=== PATIENT | male | born 1980 | race Caucasian/White ===

== ENCOUNTER 2021-06-08 16:48 | Emergency (ER) | payer MEDICAID, SELFPAY ==
[2021-06-08 17:02] VITALS: BP 124/76; PULSE 67; RESP 16; TEMP 36.8; O2SAT 99
--- NOTE | 2021-06-08 17:30 | DI.CT_ITS ---
Exam(s) CT ABDOMEN PELVIS W EXAM: CT ABDOMEN PELVIS W CLINICAL HISTORY: scrotal erythema and pain post hernia repair bilat TECHNIQUE: Imaging Protocol: Axial computed tomography images with coronal and sagittal reformatted images were created and reviewed CONTRAST MATERIAL: Intravenous: Omnipaque 350 Contrast volume:100 mL Oral: No COMPARISON: No exams were available for comparison FINDINGS: ABDOMEN: Lung Bases: Mild dependent atelectasis. Liver: Normal density. No measurable mass. Portal, Superior Mesenteric, and Splenic Veins: Unremarkable. Gallbladder and Biliary Tract: No radiodense calculus or dilation. Pancreas: Normal density, no abnormal calcifications or inflammatory process. Spleen: Normal. Adrenals: No masses seen. Kidneys: Normal size, contour and axis. No radiodense stones or obstructive uropathy. No masses seen. Abdominal Aorta: Abdominal portion non-dilated. Bowel: There are mildly dilated loops of small bowel noted particularly proximally. In the postsurgi lesa setting an ileus should be considered. Partial obstruction cannot be entirely excluded. No evid ence of appendicitis. Peritoneal Cavity: There is a peripherally enhancing fluid collection anterior to the urinary bladder (series 5, images [id number]). This may represent an abscess. No free air.There is a tiny amount of f ree fluid in the pelvis. Lymph Nodes: Within normal limits. Bones: Within normal limits for the patient's age. Soft Tissues: There is asymmetric soft tissue thickening in both inguinal canals, right greater than left. This may be postsurgical secondary to the patient's recent bilateral inguinal hernia repair. PELVIS: Bladder: Symmetric distention, no gross wall thickening. Reproductive Organs: Unremarkable as visualized. Lymph Nodes: Within normal limits. Bones: Within normal limits for the patient's age. IMPRESSION: 1. Fluid and gas filled dilated small bowel loops. In the postoperative state, and ileus should be c onsidered. Partial small bowel obstruction cannot be excluded. 2. Soft tissue swelling in the inguinal canals bilaterally. This may be postsurgical edema. Infecti on cannot be entirely excluded. 3. 1 x 4.5 x 4.1 cm peripherally enhancing fluid collection anterior to the urinary bladder which may represent a small abscess. RADIATION DOSE DELIVERED: 617.46mGy.cm Total DLP DATA REPOSITORY: All CT scans at this facility are submitted to the National Radiology Data Registry (NRDR) Dose Index Registry (DIR) with the [employer] (ACR). RADIATION OPTIMIZATION: All CT scans at this facility use at least one of these dose optimization te chniques: automated exposure control; mA and/or kV adjustment per patient size (includes targeted exa ms where dose is matched to clinical indication); or iterative reconstruction.
[2021-06-08 18:07] LABS: Abs Immature Grans 0.03 10^3/uL (0.0-0.06); Absolute Basophil Count 0.05 10^3/uL (0.0-0.2); Absolute Eosinophil Count 0.38 10^3/uL (0.0-0.7); Absolute Lymphocyte Count 2.05 10^3/uL (1.2-3.4); Absolute Monocyte Count 1.13 10^3/uL (0.1-0.8); Absolute Neutrophil Count 6.11 10^3/uL (1.2-6.7); Basophils % 0.5; Eosinophils % 3.9; HCT 41.6 % (40.0-50.0); HGB 14.3 g/dL (13.5-17.5); Immature Grans % 0.3; MCH 30.7 pg (27.0-33.0); MCHC 34.4 % (32.0-36.0); MCV 89.3 fL (80-95); MPV 9.4 fL (8.0-11.0); Monocytes % 11.6; Neutrophils % 62.7; Nucleated RBC 0 %; Platelet Count 305 10^3/uL (130-400); RBC 4.66 10^6/uL (4.36-5.78); RDW 12.5 % (11.8-14.1); RDW-SD 41.3 fL; WBC 9.75 10^3/uL (4.4-10.8)
[2021-06-08] MEDS: ACETAMINOPHEN 1,000 MG/100 ML BTL 400 MG IVPB (18:10)
[2021-06-08 18:21] LABS: ALT 17 U/L (16-63); AST 12 U/L (15-37); Albumin 3.5 g/dL (3.4-5.0); Alkaline Phosphatase 55 U/L (46-116); Anion Gap 4.7 mmol/L (3-11); BUN 18 mg/dL (7-18); Bilirubin, Total 0.2 mg/dL (0.2-1.0); C-Reactive Protein 1.79 mg/dL (0.0-0.3); CO2 32.3 mmol/L (21.0-32.0); CREATININE 1.1 mg/dL (0.70-1.30); Calcium 8.9 mg/dL (8.5-10.1); Chloride 103 mmol/L (98-107); Glucose 90 mg/dL (74-106); Sodium 140 mmol/L (136-145); Total Protein 7.5 g/dL (6.4-8.2)
[2021-06-08] MEDS: Omnipaque 350 MG/ML 100 ML BTL IJ (19:11)
[2021-06-08] MEDS: Normal Saline Flush 10 ML SYR IVP (19:13)
[2021-06-08] MEDS: Cephalexin 500 MG CAP, 4 CAPS/BTL PO (19:27)
[2021-06-08 19:30] VITALS: BP 110/59; PULSE 65; RESP 16; TEMP 37.1; O2SAT 100
--- NOTE | 2021-06-08 20:32 | DI.VRAD_ITS ---
PROCEDURE INFORMATION: Exam: CT Abdomen And Pelvis With Contrast Exam date and time: 06/08/2021 5:41 PM Age: 40 years old Clinical indication: Patient HX: Scrotal erythema and pain post hernia repair bilateral, hernia repair x1 week ago TECHNIQUE: Imaging protocol: Computed tomography of the abdomen and pelvis with contrast. Radiation optimization: All CT scans at this facility use at least one of these dose optimization techniques: automated exposure control; mA and/or kV adjustment per patient size (includes targeted exams where dose is matched to clinical indication); or iterative reconstruction. Contrast material: OMNIPAQUE 350; Contrast volume: 100 ml; Contrast route: INTRAVENOUS (IV); COMPARISON: No relevant prior studies available. FINDINGS: Limitations: Paucity of intra-abdominal fat. Lungs: Mild dependent atelectasis. Liver: Normal appearing liver. Gallbladder and bile ducts: Gallbladder collapsed and not well evaluated but grossly unremarkable, as seen. No calcified gallstones seen. No biliary dilatation. Pancreas: Pancreas partially obscured by close apposition of adjacent structures but grossly unremarkable, as seen. Spleen: Normal appearing spleen. Adrenal glands: Normal appearing adrenal glands. Kidneys and ureters: Normal appearing kidneys. No hydronephrosis. Stomach and bowel: No oral contrast. Moderate fluid and gas-filled dilatation of a moderately long segment of small bowel extending into the region of the left inguinal hernia with relative collapse of the downstream small bowel. Postoperative ileus? Small bowel obstruction? Fluid throughout the downstream small bowel, relatively decreased in caliber but not frankly collapsed. Colon partially obscured by close apposition of adjacent structures but grossly unremarkable, as seen. No evidence of diverticulitis or colitis. Appendix: Normal appendix, best demonstrated by the coronal series. Intraperitoneal space: Small amount of free fluid in the deep pelvis. No free air. Vasculature: Normal caliber abdominal aorta. Lymph nodes: No pathologically enlarged mesenteric, retroperitoneal, or pelvic sidewall lymph nodes. Urinary bladder: Normal appearing urinary bladder. Reproductive: Prostate gland and seminal vesicles partially obscured but grossly normal in size. Bones/joints: No acute fracture seen among the bones of the abdomen or pelvis. Soft tissues: Asymmetric soft tissue swelling and fluid in the region of a recent left inguinal hernia repair, images 64-78 of series 4. Peripherally enhancing fluid collection within the space of Retzius anterior to the bladder measuring 1.0 cm x 4.5 cm x 4.1 cm suspicious for a small abscess, best demonstrated by axial images 72-80 of series 4. Asymmetric heterogeneous soft tissue density extending along the right inguinal cord into the upper scrotum with an appearance suspicious for prominent vascular structure surrounded by edema. Scrotal contents excluded from view. If there is concern for intrascrotal pathology or vascular compromise of the testicles, ultrasound would be recommended for additional evaluation. IMPRESSION: 1. Moderate fluid and gas-filled dilatation of a moderately long segment of small bowel extending into the region of the left inguinal hernia with relative collapse of the downstream small bowel. In the recent postop period, a postoperative ileus could have this appearance; however, partial or developing small bowel obstruction could have an identical appearance. Clinical correlation is recommended. 2. Asymmetric soft tissue swelling and fluid in the region of a recent left inguinal hernia repair. The appearance is nonspecific. Postsurgical edema and fluid could have this appearance although superimposed infection is not excluded. 3. Peripherally enhancing 1.0 cm x 4.5 cm x 4.1 extraperitoneal fluid collection within the space of Retzius anterior to the bladder measuring cm. Marginal enhancement suggests that this finding probably represents a small abscess. 4. Asymmetric heterogeneous soft tissue density extending along the right inguinal cord into the upper scrotum with an appearance suspicious for prominent vascular structure surrounded by edema. Postsurgical edema could probably have this appearance. Superimposed infection is not excluded by imaging. Of note, the scrotal contents are not imaged. If there is clinical concern for intrascrotal pathology or vascular compromise of the testicles, ultrasound would be recommended for additional evaluation. 5. Small amount of fluid in the deep pelvis. Dictated and Authenticated by: Rodríguez Lomeli MD. Ordering:SHONA Kapoor MD
--- NOTE | 2021-06-08 23:09 | W.ED.GENAD ---
Discharge Plan Disposition Patient Disposition: AGAINST MEDICAL ADVICE Condition: Serious Discharge Details Clinical Impression: Scrotal erythema Primary Care Provider: Unknown,Unknown ED Provider: Emelia Steele Home Meds and New Rx's Prescriptions: New cephalexin 500 mg capsule 500 mg PO Q6H 10 Days Qty: 40 RF: 0 Discharge Instructions Additional Instructions: You are leaving against our medical recommendation prior to your CAT scan returning in consultation with urology, I will call you with the results of your ultrasound, if you do not hear from me you may call emergency at the number listed It is recommendation that you are reevaluated at your earliest ability, you should also call your urologist and essential that you follow-up with them, you are at risk for serious infection to your scrotal region I have supplied you with antibiotics for some concern for infection to your postoperative site Medical Decision Making Patient had CT scan and diagnostic labs, CRP elevated consistent with suspected infection CT scan pending and patient request discharge He states that his ride is leaving and he must be discharged home I did discuss the risk associated with his decision and he has accepted these risk, he is completely alert, oriented, of decisional capacity He understands that he is at risk for fourniers gangrene or more significant pathology He is discharged home with prescription for Keflex for suspected abscess to laparoscopic sites, he is aware that we have not received the results of the CT scan although concern for air-fluid levels on his CT scan V rad interpretation shows abscess in the suprapubic region possibly with soft tissue edema to right scrotum consistent with patient's pain Likely cellulitic Ileus versus bowel obstruction, patient made aware regarding the results, I spoke with his surgeon, Dr. Gallo at [facility] with the patient to go to the emergency room if he is able to, and he will history admit He states that he also feels comfortable calling the patient first thing in the morning and will admit him at that time if he is more comfortable I discussed these options with the patient and patient states that he will go down to [facility], he states that he prefers not to see Dr. Gallo again because he has a infection after surgery Patient asked that we transfer his records to [facility], I did let him know that they likely will have access to her records I also made patient aware that we did not refer him to [facility] nor have any consultation with [facility] and this will be a new visit for the patient Medical Records Medical records reviewed: Yes I reviewed the patient's medical records. Lab Data Lab results reviewed: Yes I reviewed the patient's lab results. HPI General Mode of arrival: ambulatory. Date/Time Provider Initiated Documentation: 06/08/21 17:31. Limitations to Documentation: no limitations. Information obtained by: patient. HPI Narrative: This 40-year-old gentleman presents status post bilateral inguinal hernia repair on 06-18 at [facility]. Patient states that he is having some increased pain in his abdomen. He states he is moving his bowels. He denies any fever or chills. He states he had the pain for the past 2 days and become progressively worse. He denies any chest pain or shortness of breath. He denies dizziness or weakness. He states the pain is exacerbated with walking. He states that he did not follow-up at his scheduled appointment with the surgeon as he was in too much pain and could not acquire a ride. He has been able to urinate without difficulty. Related Data Home Medications Medication Instructions Recorded Confirmed cephalexin 500 mg PO Q6H 10 Days #40 cap 06/08/21 Previous Rx's Medication Instructions Recorded cephalexin 500 mg PO Q6H 10 Days #40 cap 06/08/21 Allergies Allergy/AdvReac Type Severity Reaction Status Date / Time No Known Allergies Allergy Unverified 06/08/21 17:09 General Stated Complaint: Abd Prob NITIN: 3 Review of Systems All systems reviewed & are unremarkable except as noted in HPI and below PFSH Social History Smoking/Tobacco Use Status: Current every day Smoking risk assessment performed?: Yes Alcohol Intake: current Alcohol Intake frequency: a few times a month Drug use: Daily Substance use type: marijuana Do you feel safe at home: Yes Do you feel safe in your relationship?: Yes Exam Const General: cooperative HENMT Mouth: oral mucosae normal Eyes Other: No peripheral edema or calf tenderness Resp Effort & Inspection: normal respiratory effort Cardio Rate: regular rate Rhythm: regular rhythm GI Other: Abdomen tender, 3 laparoscopic sites noted, the umbilical laparoscopic site has induration and slight wound dehiscence, no purulent drainage noted Tenderness with palpation over suprapubic region, scrotal erythema and mild edema with slight induration, no tissue necrosis or crepitus, no rebound or guarding Other: No CVA tenderness, no penile involvement Skin Other: Erythema and swelling noted to right scrotum Neuro General: patient alert and patient oriented x3 Extrem General: normal to inspection Course Vital Signs Vital signs: Vital Signs Temperature 36.8 C 06/08/21 17:02 Pulse 67 06/08/21 17:02 Respiratory Rate 16 06/08/21 17:02 Blood Pressure 124/76 06/08/21 17:02 Pulse Oximetry 99 06/08/21 17:02 Temperature 37.1 C 06/08/21 19:30 Temperature Source Skin 06/08/21 17:02 Pulse 65 06/08/21 19:30 Respiratory Rate 16 06/08/21 19:30 Respiratory Effort 06/08/21 18:12 Blood Pressure 110/59 L 06/08/21 19:30 Blood Pressure Position Sitting 06/08/21 17:02 Pulse Oximetry 100 06/08/21 19:30 Oxygen Delivery Method Room Air 06/08/21 17:02 Oxygen Flow Rate 0 06/08/21 17:02 Pain Level 8 06/08/21 18:10 Comment 06/08/21 17:02 Lab/Test Results Lab/Test Results: Laboratory Tests Range/Units 06/08/21 06/08/21 17:55 17:55 WBC (4.4-10.8) 10^3/uL 9.75 RBC (4.36-5.78) 10^6/uL 4.66 Hgb (13.5-17.5) g/dL 14.3 Hct (40.0-50.0) % 41.6 MCV (80-95) fL 89.3 MCH (27.0-33.0) pg 30.7 MCHC (32.0-36.0) % 34.4 RDW (11.8-14.1) % 12.5 Plt Count (130-400) 10^3/uL 305 MPV (8.0-11.0) fL 9.4 Immature Gran % 0.3 Neutrophils % 62.7 Lymphocytes % 21.0 Monocytes % 11.6 Eosinophils % 3.9 Basophils % 0.5 Nucleated RBC % % 0 Absolute Neutrophils (1.2-6.7) 10^3/uL 6.11 Absolute Lymphocytes (1.2-3.4) 10^3/uL 2.05 Absolute Monocytes (0.1-0.8) 10^3/uL 1.13 H Absolute Eosinophils (0.0-0.7) 10^3/uL 0.38 Absolute Basophils (0.0-0.2) 10^3/uL 0.05 Sodium (136-145) mmol/L 140 Potassium (3.5-5.1) mmol/L 4.0 Chloride (98-107) mmol/L 103 Carbon Dioxide (21.0-32.0) mmol/L 32.3 H Anion Gap (3-11) mmol/L 4.7 BUN (7-18) mg/dL 18 Creatinine (0.70-1.30) mg/dL 1.1 Estimated GFR/1.73 m2 (mL/min/1.73m2) >= 60.00 Glucose (74-106) mg/dL 90 Calcium (8.5-10.1) mg/dL 8.9 Total Bilirubin (0.2-1.0) mg/dL 0.2 AST (15-37) U/L 12 L ALT (16-63) U/L 17 Alkaline Phosphatase (46-116) U/L 55 C-Reactive Protein (0.0-0.3) mg/dL 1.79 H Total Protein (6.4-8.2) g/dL 7.5 Albumin (3.4-5.0) g/dL 3.5
== END 2021-06-08 19:36 | disposition left against medical advice (07) ==
PROVIDERS: Emergency Provider Physician Assistant
DX: L53.8 Other specified erythematous conditions (principal); R79.82 Elevated C-reactive protein (CRP); L02.211 Cutaneous abscess of abdominal wall; Y83.8 Other surgical procedures as the cause of abnormal reaction of the patient, or of later complication, without mention of misadventure at the time of the procedure; R93.3 Abnormal findings on diagnostic imaging of other parts of digestive tract
CPT/HCPCS: 36415; 80053; 96374; 99285; 74177; 85025; 86140; 99284; J0131; J3490

== ENCOUNTER 2022-07-13 18:27 | Emergency (ER) | payer MEDICAID, SELFPAY ==
[2022-07-13 18:33] VITALS: BP 141/76; PULSE 86; RESP 16; TEMP 36.5; O2SAT 99
--- OUTSIDE RECORDS SUMMARY | 2022-07-13 18:39 | XMS_ITS | Clinical Summary ---
:1980 Author Organization [facility] [place] [address] Care Team Providers Name Role Phone Supa Bolton MD Primary Care Provider Allergies Active Allergy Reactions Severity Noted Date Comments Penicillins 06/09/2021 From childhood, unknown reaction Medications No known medications Active Problems Problem Noted Date Intra-abdominal abscess 06/09/2021 Social History Tobacco Use Types Packs/Day Years Used Date Never Assessed Sex Assigned at Date Recorded Not on file Last Filed Vital Signs Vital Sign Reading Time Taken Comments Blood Pressure 124/90 06/09/2021 7:20 PM EDT Pulse 67 06/09/2021 3:04 AM EDT Temperature 36.6 ??C (97.9 ??F) 06/09/2021 7:20 PM EDT Respiratory Rate 22 06/09/2021 7:20 PM EDT Oxygen Saturation 96% 06/09/2021 7:20 PM EDT Inhaled Oxygen Concentration - - Weight 68 kg (150 lb) 06/09/2021 3:04 AM EDT Height 180.3 cm (5' 11) 06/09/2021 3:04 AM EDT Body Mass Index 20.92 06/09/2021 3:04 AM EDT Plan of Treatment Health Maintenance Due Date Last Done Comments Covid-19 Vaccine (#1) 01/18/1982 HIV screen 1999 Hepatitis C Screening 1999 Lipid Screening 1999 Tdap adult 2000 Tetanus vaccine 2000 Influenza (Flu) vaccine (1 of 1 - Influenza standard 05/29/2022 series) Insurance Payer Benefit Plan / Subscriber ID Effective Dates Phone Addre ss Type Group [place] [id number] 2021-Prese [phone] [address] [facility] [address] [place], [place] [phone] Advance Directives Latest Code Status on File Code Status Date Activated Date Inactivated Comments Attempt Cardiopulmonary Resuscitation - 06/09/2021 11:13 AM 2020 2:15 AM Inpatient Code Status decision made by: Patient Care Teams Training And Development Coordinator Relationship Specialty Start Date End Date Supa Bolton MD PCP - General General Internal Medicine 06/09/21 [address] [place], [place] [id number]
--- OUTSIDE RECORDS SUMMARY | 2022-07-13 18:39 | XMS_ITS | Encounter Summary ---
:1980 Author Organization [facility] [place] [address] Care Team Providers Name Role Phone Unavailable Primary Care Provider Unavailable Encounter Details Date Type Department Care Team Description 06/08/2021 Ancillary Procedure [place] [id number] Social History Tobacco Use Types Packs/Day Years Used Date Never Assessed Sex Assigned at Date Recorded Not on file documented as of this encounter Plan of Treatment Not on filedocumented as of this encounter Procedures Procedure Name Priority Date/Time Associated Diagnosis Comme nts FILM LIBRARY STAT 06/08/2021 12:00 AM Results for this STORAGE ONLY CT EDT procedure ar e in ABDOMEN AND PELVIS the resul ts section. documented in this encounter Results Film Library- Storage Only CT Abdomen & Pelvis (06/08/2021 12:00 AM EDT) Specimen (Source) Anatomical Location Collection Method / Collectio n Time Received Time / Laterality Volume Narrative RAD - 06/09/2021 4:51 AM EDT This exam is auto-finalizing. It's purpo se is for storage only. Keaton Hutchison MD [facility] FILM LIBRARY ORDERABLES Performing Organization Address City/State/ZIP Code Phon e Number [place], [place] documented in this encounter Visit Diagnoses Not on filedocumented in this encounter
--- OUTSIDE RECORDS SUMMARY | 2022-07-13 18:39 | XMS_ITS | Encounter Summary ---
:1980 Author Organization [place] [address] Care Team Providers Name Role Phone Supa Bolton MD Primary Care Provider Reason for Visit Reason Comments Post-op Problem Abscess Auth/Cert Specialty Diagnoses / Procedures Referred By Contact Refer red To Contact Diagnoses Intra-abdominal abscess Procedures EMERGENCY IPI Referral ID Status Reason Start Date Expiration Date Visits Requ ested Visits Authorized [id number] 1 1 Encounter Details Date Type Department Care Team Description 06/09/2021 Hospital Encounter 4 Carson Keaton Noguera MD [facility] [place] [id number] Intra-abdominal [facility] Javier Perera [facility] [place] [address] abscess (Primary Dx) [facility] Evy Pope MD [facility] [place] [address] [place] [id number] Social History Tobacco Use Types Packs/Day Years Used Date Never Assessed Sex Assigned at Date Recorded Not on file documented as of this encounter Last Filed Vital Signs Vital Sign Reading [...] Mass Index 20.92 06/09/2021 3:04 AM EDT documented in this encounter Progress Notes Carina Delacruz RN - 06/10/2021 12:11 AM EDT Pt left AMA, education provided, notified of risks associated w/ leaving AMA in current condition, offered compromised resolutions to complaints. MD notified and discussed w/ pt @ bedside, AMA paperwork signed. INAT Jw Aguilera MD - 06/09/2021 11:52 PM EDT Surgery Progress Note - Brief Update Pt left AMA evening of 06/09/21. On discussion with the pt he was upset that his partner was not allowed to sleep in a chair at his bedside per hospital policy. Pt was made aware of this policy multipletimes throughout the day, and staff had offered to help them find a nearby hotel and transportation for his partner. Pt declined, stating that if she was not allowed to sleep in the room, he would leave AMA. Discussed with the pt risks of leaving against medical advice in his current medical condition, including worsening of his SBO and scrotal pain. Pt showed no evidence of limited capacity, fully understood the risks. Exhibited a pattern of refusing medical advice throughout the day such as eatingfood while NPO per nursing report, and removing his NGT himself. Pt would not wait for senior resident to speak with him at bedside because his partner had left the building already. He removed his ownPIV and left the unit, although he did stop to sign the AMA paperwork before departing. Jw Aguilera MD 06/10/2021 Janice Adkins MD - 06/09/2021 2:56 PM EDTSummary: Self removal of NGT Daytime Series of Events HPI: Edmond Sanches is a 40 y.o. male with a history of left open inguinal hernia repair complicated by recurrence and bilateral TEP repair on 05/30 presents to the ED for evaluation of persistent right abdominal wall pain extending to the right groin and scrotum. He is also complaining of abdominal distension, decreased PO intake and bloating. His CT is concerning for fluid collection likely abscess or seroma and a low grade SBO. Events: @ approx 1pm: MD paged concerning severe throat pain and abdominal pain. Patient had just received NGT placement with no urojet administration. KUB confirmed correct placement. NGT placed to suction afterwards. Minimal , approx 30 cc of white substance coming out. Chloraseptic spray ordered and 2 pumps sprayed in mouth. One time dose Oxycodone given through NGT for pain. NGT 70 cm osmany at tip of the nose. At the same time, patient complaining of severe groin pain. @ approx 1:30p: patient transferred from ED to 411. Continued to complain of discomfort. Patient visibly in discomfort. Paged [phone] @ approx 2:30p: received a second page. Patient continues to be in excruciating pain. Asked for MD to assess. Planning on pulling NGT back a little and doing repeat KUB. Upon arrival at room patient had pulled NGT. [id number] made aware. No further intervention. Janice Tapia MD Pager #[phone] Ashley Canas RN - 06/09/2021 1:31 PM EDT IA incomplete documented in this encounter H&P Notes Evy Pope MD - 06/09/2021 7:11 AM EDT [facility] Department of General Surgery Consult Note Consultation Requested by: Javier Perera DO Patient location: ADM1 History of Present Illness: Edmond Sanches is a 40 y.o. male with a history of heavy smoking (1ppd) left inguinal hernia repair [id number], right inguinal hernia and recurrence of L inguinal hernia who underwent TEP repair on 05/30/21 at [facility] presents today with persistent right abdominal wall pain that began on the day of surgery. He reports that this pain has been steady, persistent, radiating to the right groin and extending to the right scrotum. Otherwise, he continues to tolerate a diet, passes bowel movements,and denies nausea, vomiting, fever, chills, or changes in urination. He was seen at [facility] yesterday where he underwent a CT AP concerning for an abscess and he was prescribed keflex. He left AMA and is requesting a third opinion regarding his abdominal wall pain which is exacerbated by movement. He denies any fever, chills, change in bowel or bladder habits. Past Medical History: No past medical history on file. Past Surgical History No past surgical history on file. Medications No current facility-administered medications on file prior to encounter. No current outpatient medications on file prior to encounter. Allergies Allergies Allergen Reactions ??? Penicillins From childhood, unknown reaction Family History: No family history on file. Social History: Social History Socioeconomic History ??? Marital status: Single Spouse name: Not on file ??? Number of children: Not on file ??? Years of education: Not on file ??? Highest education level: Not on file Occupational History ??? Not on file Tobacco Use ??? Smoking status: Not on file Substance and Sexual Activity ??? Alcohol use: Not on file ??? Drug use: Not on file ??? Sexual activity: Not on file Other Topics Concern ??? Not on file Social History Narrative ??? Not on file Social Determinants of Health Financial Resource Strain: ??? Difficulty of Paying Living Expenses: Not on file Food Insecurity: ??? Worried About Running Out of Food in the Last Year: Not on file ??? Ran Out of Food in the Last Year: Not on file Transportation Needs: ??? Lack of Transportation (Medical): Not on file ??? Lack of Transportation (Non-Medical): Not on file Physical Activity: ??? Days of Exercise per Week: Not on file ??? Minutes of Exercise per Session: Not on file Review of Systems: As stated above, otherwise negative Physical Exam: Temp: [36.8 ??C (98.2 ??F)] Heart Rate: [67] Resp: [18] BP: (127)/(76) SpO2: [99 %] Heart Rate from SpO2: -- General: alert, no acute distress Head: Atraumatic, non cyanotic Cardiac: Regular rate per monitor Pulmonary: clear to auscultation bilaterally, no increased work of breathing on RA Abdominal: soft, healing midline surgical laparoscopic scar w/ dermabond, tenderness of the right rectus from the umbilicus to the suprapubic region, right scrotal swelling, tender to palpation, no drainage from sincision Neuro: grossly intact, follows commands, AAO x3. Extremities: Warm and well-perfused Labs: Recent Labs 06/09/21 034 WBC 11.9* HGB 13.4* HCT 38.8* PLATELET 285 Recent Labs 06/09/21 034 NA 139 K 3.9 CL 102 CO2 27 BUN 14 CREATININE 0.80 Recent Labs 06/09/21 034 AST 11 ALT 7 ALKPHOS 53 BILITOT 0.2 BILIDIR 0.1 Recent Labs 06/09/21 034 CALCIUM 9.0 No results for input(s): PT, INR, PTT in the last 168 hours. No results for input(s): CK, TROPONINT, PROBNP in the last 168 hours. No results for input(s): CRP, SEDRATE in the last 7068 hours. Imaging: CT Abdomen/Pelvis * Approximately 3.9 x 3.6 x 0.7 cm peripherally enhancing fluid collection in the space of Retzius. Approximately 3.7 x 3.3 x 0.6 cm air-fluid collection tracking posterior to the right rectus abdominis to the right inguinal canal. These 2 collections are likely continuous and are concerning for abscess(es). * Focal soft tissue density in the right inguinal canal likely represents postoperative changes. * At least low-grade small bowel obstruction with a transition point in the left lower quadrant (sagittal series 8 image 45). * Herniation of the antimesenteric border of a small bowel loop distal to the transition point into the left inguinal canal. Please note that the transition point is proximal to and distinct from the herniated loop. Impression: Edmond Sanches is a 40 y.o. male with a history of left open inguinal hernia repair complicated by recurrence and bilateral TEP repair on 05/30 presents to the ED for evaluation of persistent right abdominal wall pain extending to the right groin and scrotum. He is also complaining of abdominal distension, decreased PO intake and bloating. His CT is concerning for fluid collection likely abscess or seroma and a low grade SBO. Hence, he needs admission for observation and management. Recommendation: - Admit to Surgery team, Dr Pope attending. - Needs bowel rest with NPO, NGT to LIWS, IVF's. - Urology consult for scrotal pain, swelling of the groin, appreciate recs. Scrotal USG - Will continue to monitor for change in clinical status and NGT output. - DVT prophylaxis: LVX 40 QHS - Pain control with tylenol scheduled, PRN dilaudid for breakthrough pain. - Monitor for I/O's - AM CBC, BMP, Mg and PO4. - Antibiotics : IV Flagyl and Ceftriaxone test dose (allergic to penicillin), will need to monitor: discussed with Pharmacy, and ID (Dr Chavira). Discussed with Dr. Pope and communicated to the primary team. Pao Reddy MD General Surgery Consult Pager [phone] Nakia Foley MD General Surgery Resident [facility] ADDENDUM- attending note. I saw and examined Mr. Sanches with Dr. Foley and exam performed in presence of Dr. Swanson as teachers' assistant. I have reviewed ct scan from early this morning as well as labs. I agree with HPI as documented by Drs. Rdedy and Alaina. Mr. Sanches has history of open left hernia repair in 2008. Recovery was uneventful. He now presents s/p b/l TEP complaining of right upper quadrant pain which radiates along the right abdominal wall into the testicle as well as a large bubble in the luq which is only relieved with emesis. He reports a few chills a few days ago. The right sided pain has been present since the surgery as has the bubble feeling. Bowels are working- both stool and gas passing. On exam, well but tired appearing and in nad. Abdomen is soft with mild distension. No palpable hernias. Laparoscopic port sites with dermabond intact- no cellulitis or drainage. Scrotum is tender (r teste > left) but not edematous or ecchymotic. Labs significant for wbc 11.9. No other abnormalities. U/A not performed. CT scan with dilated small bowel with transition point but no obvious source (no trochar site hernias, hematoma). There are 2 fluid collections in the anterior abdominal wall- ? Seroma vs abscess although some rim enhancement concerning for abscess. Of note- the anterior bladder collection was presentby Edmond's report on CT yesterday at [facility] and Edmond was started on abx. Left inguinal hernia with bright's hernia (SB) with no evidence of incarceration or strangulation. A/P Edmond is a 40 yo male with a history of b/l TEP repair of inguinal hernias with a difficult post operative course. By both clinical history and ct scan- it seems he may have two processes- one of the right abdominal wall (seroma vs abscess) and a partial sbo. He is not systemically ill and has noevidence of mesh infection. Will admit for observation for pain control and bowel rest/IVF. NGT if persistent emesis or abdominal distension. Will review CT scan with radiology to assess if collectionscan be aspirated for source control, culture and possible symptomatic relief. Plan testicular u/s although torsion or ischemia are unlikely- suspect swelling related to hernia repair and/or insufflation. Plan empiric abx given possible abscesses in setting of mesh. documented in this encounter ED Notes Анна Moon MD - 06/09/2021 3:51 AM EDT ED Resident Note CC: RLQ, right groin, and right testicular pain HPI: Edmond Sanches is a 40 y.o. male with recent B/L inguinal hernia repair who presents to the Emergency Department for RLQ, right groin, and right testicular pain. The patient had a B/L inguinal hernia repair 1 week ago and has been experiencing pain in his RLQ, right groin, and right testicle. He rates the pain as an 8/10 on the pain scale. He also feels as if there is something inside of his right testicle, which he thinks is mesh or intestine. He had one episode of vomiting this past week but denies nausea currently. He states that his top-most incision had discharge coming from it. He denies feversor chills, pain/burning with urination, blood in his urine or stool, constipation or diarrhea. He presented to the [facility] ED yesterday at which time they performed a CT abdomen/pelvis which the patient states showed an abscess around his bladder. They were able to get in contact with the surgeon that performed his hernia repair who agreed to evaluate him today in the morning. Hewas sent home with antibiotics which he has been taking. He states that he decided to come to the [facility] ED because he felt his symptoms were serious and that he should be seen sooner. He also states that he no longer feels comfortable seeing his previous surgeon because of the pain he is in. Pt was seen under the supervision of an attending physician. Review of Systems Constitutional: Negative for chills and fever. HENT: Negative for hearing loss and trouble swallowing. Eyes: Negative for visual disturbance. Respiratory: Negative for shortness of breath. Cardiovascular: Negative for chest pain. Gastrointestinal: Positive for abdominal pain and vomiting. Negative for blood in stool, constipation, diarrhea and nausea. Endocrine: Negative for polyuria. Genitourinary: Negative for difficulty urinating, dysuria, frequency and hematuria. Skin: Negative for rash. Neurological: Negative for weakness, numbness and headaches. Pertinent positives and negatives are included in the HPI, otherwise at least ten systems were reviewed and negative. Past Medical and Surgical Histories, Social History, Medications, Allergies were reviewed in the chart. Vitals: ED Triage Vitals [06/09/21 0304] BP: 127/76 Heart Rate: 67 Resp: 18 Temp: 36.8 ??C (98.2 ??F) Temp src: Oral SpO2: 99 % O2 Device: RA O2 Flow Rate (L/min): n/a Physical Exam Constitutional: Appearance: Normal appearance. He is normal weight. HENT: Head: Normocephalic and atraumatic. Eyes: Extraocular Movements: Extraocular movements intact. Cardiovascular: Rate and Rhythm: Normal rate and regular rhythm. Pulses: Normal pulses. Heart sounds: Normal heart sounds. No murmur heard. No friction rub. No gallop. Pulmonary: Effort: Pulmonary effort is normal. Breath sounds: Normal breath sounds. No wheezing, rhonchi or rales. Abdominal: General: Abdomen is flat. Bowel sounds are normal. There is no distension. Tenderness: There is abdominal tenderness in the right upper quadrant and right lower quadrant. Genitourinary: Penis: Normal. Testes: Right: Tenderness and swelling present. Left: Tenderness not present. Comments: Erythema and tenderness of right testicle, no tenderness of left testicle, nurse teachers' assistant present during the exam Musculoskeletal: General: Normal range of motion. Cervical back: Normal range of motion. Skin: General: Skin is warm. Neurological: General: No focal deficit present. Mental Status: He is alert and oriented to person, place, and time. ED Course: - labs collected: CBC, BMP, LFTs - CT abdomen/pelvis w contrast performed - general surgery consulted for abscess seen on CT, evaluated patient I have reviewed labs and imaging, images and available reports, and they are significant for: Lab Results Component Value Date WBC 11.9 (H) 06/09/2021 HGB 13.4 (L) 06/09/2021 HCT 38.8 (L) 06/09/2021 MCV 88.2 06/09/2021 PLATELET 285 06/09/2021 slightly elevated WBC, possibly sign of infection/inflammation Lab Results Component Value Date NA 139 06/09/2021 K 3.9 06/09/2021 CL 102 06/09/2021 CO2 27 06/09/2021 BUN 14 06/09/2021 CREATININE 0.80 06/09/2021 GLUCOSE 98 06/09/2021 CALCIUM 9.0 06/09/2021 ESTGFR 113 06/09/2021 normal BMP Lab Results Component Value Date ALT 7 06/09/2021 AST 11 06/09/2021 ALKPHOS 53 06/09/2021 BILITOT 0.2 06/09/2021 normal LFTs, less likely biliary cause of pain CT Abdomen & Pelvis w Contrast Preliminary Result 1. Unchanged thin abscess along the posterior aspect of the right rectus muscle extending towards the right inguinal canal. 2. Mildly dilated loops of jejunum with tapering transition point in the left lower quadrant representing a partial small bowel obstruction versus ileus. 3. No inguinal hernias. Small amount of edema in the anterior superficial soft tissues of the pelvis reflect postoperative change following recent operative repair. Preliminary report signed by: Jay Jay Thompson at 06/09/2021 5:59 AM Film Library- Storage Only CT Abdomen & Pelvis Final Result Assessment and Plan: 40 y.o. male with with recent B/L inguinal hernia repair who presents to the Emergency Department for RLQ, right groin, and right testicular pain. The patient had imaging at an OSH that showed an abscess. There were no signs of inguinal hernia or strangulation of bowel. WBC was slightly elevated as well. LFTs normal therefore, unlikely biliary/liver pathology. Repeat imaging shows an unchanged abscess along the posterior aspect of the right rectus muscle. General surgery was consulted for the abscess and they evaluated the patient. The patient was discussed with the oncoming ED resident and they will be continuing their care pending surgery's recommendations. Plan: - pending surgery's recommendations Анна Moon MD Resident 06/09/21 0656 Associated attestation - Keaton Hutchison MD - 06/12/2021 2:26 PM EDT ED ATTENDING ATTESTATION The patient was seen in conjunction with Dr. Moon, the resident physician. I have independently performed the neves portions of the history and physical exam. I have reviewed all diagnostic studies personally including labs, imaging studies and EKGs. I have discussed the details of the case with the resident and agree with the assessment and plan as described in the resident note above unless noted in my separate note. ED Course as of Jun 12 1419 Sun Jun 09, 2021 0343 40 yo M w/ hernia repair surgery 1 wk ago, abdominal pain and scrotal pain since surgery. Seen at [facility] and told he has an abscess forming near bladder. ED spoke to attending surgeon that did the original surgery, with scheduled apt for today. Patient did not want to see his original surgeon, so came to for evaluation. No fevers/chills. NBNB emesis x 1 this week. MDM: 40 yo M w/ bilateral hernia repair on 05/30 presenting with right sided abdominal pain and scrotal pain. Patient with scrotal tenderness on right side. No palpable mass in scrotum. No crepitus to perineum to suggest FG. Patient with significant abdominal tenderness. Patient reports being told he has an abscess and fluid collection however no records with the patient. Given significant tenderness, CT abdomen pelvis ordered to evaluate for SBO vs abscess at mesh sight vs internal or inguinal hernia. Lower suspicion for torsion given exam. No testicular elevation or horizontal positioning, + b/l cremasteric reflexes. CT concerning for fluid collection to right abdominal wall. Possible seroma vs abscess. CT also concerning for partial SBO. Elevated WBC on labs. Plan for general surgery consult. Patient signed out to morning EM team pending surgery consult and continued management of pain in the ED. documented in this encounter Miscellaneous Notes Plan of Care - Luci Shields RN - 06/09/2021 4:28 PM EDT Pt arrived to the floor around 1340. AAOx4. VSS on RA. Pt oriented to unit, room, and staff. See DocFlow for assessment. Will continue to monitor. Report received from Bc DIAZ, ED. OUTCOME SUMMARY: Edmond is AAOx4. VSS on RA. Pain well controlled with and scheduled meds. Pt voiding adequate amounts via urinal. RLQ tender. Incisions CDI. NGT hooked to LCWS. Pt c/o burning sinuses and threatened topull out NGT. Team paged. Pt pulled out NG, team aware. Ceftriaxone test dose given, pt vitals recorded. Pt went to ultrasound shortly after and actual dose was pushed back. Pt tolerated well, vitals recorded. Pt ambulated in halls independently. Will continue with the current plan of care and update as needed. Patient Vitals for the past 8 hrs: BP Temp Temp src Resp SpO2 06/09/21 1451 133/82 36.8 ??C (98.2 ??F) -- 18 95 % 06/09/21 1430 134/79 36.6 ??C (97.9 ??F) -- -- 96 % 06/09/21 1417 138/78 36.6 ??C (97.9 ??F) Oral 18 97 % 06/09/21 1345 123/84 36.8 ??C (98.2 ??F) Oral 19 96 % PLAN MOVING FORWARD: Encourage ambulation NPO status Maintain pain control INDIVIDUALIZED FALL PREVENTION INTERVENTIONS: Patient-specific fall risk factors per assessment: [current deficits]: lines/drains, pain Assistance [level of assistance required for transfers and ambulation]: IND Supervision [direct monitoring required during toileting and ADLs]: Eyes on Surveillance [continuous indirect monitoring]: Masimo, purposeful rounding, call baltazar in reach Patient-specific fall prevention interventions for sensory deficits provided, if applicable: [X] Yes, environmental modifications, lights adjusted to task, non- skid socks CPG GOAL OUTCOME EVALUATION: Ongoing Consult Note - Kyle Gerardo MD - 06/09/2021 12:45 PM EDT Images from the original note were not included. UROLOGY CONSULT NOTE Reason for Consultation: scrotal pain Referring Provider: Evy Pope MD History of Present Illness: Edmond Sanches is a 40 y.o. male with a history of bilateral hernias s/p TEP repair on 05/30/21 at [facility] who reports progressive right abdominal and right scrotal pain and tenderness sincesurgery with CT scan showing a fluid collection in the space of Retzius and air-fluid collection trac annika posterior to the right rectus abdominis to the right inguinal canal concerning for abscess, focal soft tissue density in the right inguinal canal suggestive of post-op changes, and possible SBO. He is currently admitted to the General Surgery service. Urology has been consulted regarding his scrotal pain. He reports scrotal erythema that appears improved today, pain, and swelling. No pain in his left testicle. He states that hernia contents would sometimes extend into his scrotum prior to repair. No issues voiding and has voided since CT scan. Some improvement in pain with scrotal elevation. Denies dysuria, hematuria, urgency, frequency or personal/family history of malignancies. He has never seen a urologist before. Past Medical History: No past medical history on file. Past Surgical History: No past surgical history on file. Social History: Social History Socioeconomic History ??? Marital status: Single Spouse name: Not on file ??? Number of children: Not on file ??? Years of education: Not on file ??? Highest education level: Not on file Occupational History ??? Not on file Tobacco Use ??? Smoking status: Not on file Substance and Sexual Activity ??? Alcohol use: Not on file ??? Drug use: Not on file ??? Sexual activity: Not on file Other Topics Concern ??? Not on file Social History Narrative ??? Not on file Social Determinants of Health Financial Resource Strain: ??? Difficulty of Paying Living Expenses: Not on file Food Insecurity: ??? Worried About Running Out of Food in the Last Year: Not on file ??? Ran Out of Food in the Last Year: Not on file Transportation Needs: ??? Lack of Transportation (Medical): Not on file ??? Lack of Transportation (Non-Medical): Not on file Physical Activity: ??? Days of Exercise per Week: Not on file ??? Minutes of Exercise per Session: Not on file Family History: No family history on file. Allergies: Allergies Allergen Reactions ??? Penicillins From childhood, unknown reaction Review of Systems: As indicated in HPI, otherwise negative. Physical Exam: Temp: [36.8 ??C (98.2 ??F)] Heart Rate: [67] Resp: [18] BP: (127)/(76) SpO2: [99 %] Heart Rate from SpO2: -- General: NAD, appears somewhat uncomfortable CV: regular rate Pulm: nonlabored breathing on room air Abd: tenderness to palpation of right abdomen, nondistended, incisions covered with dermabond, NGT, right groin swollen and tender with fullness : mild scrotal erythema, left testicular nontender, right spermatic cord and testicle very tender to palpation with soft fullness in spermatic cord, no crepitus or scrotal swelling Ext: warm and well-perfused Labs: Recent Labs 06/09/21 0345 WBC 11.9* HGB 13.4* PLATELET 285 NA 139 K 3.9 CL 102 CO2 27 BUN 14 CREATININE 0.80 CALCIUM 9.0 Microbiology: None Imagin06/09/21 CTAP w Contrast Kidneys: Symmetric size and enhancement. No hydronephrosis. Left extrarenal pelvis containing small amount of excreted iodinated contrast material. Bladder: Normal and distended with iodinated contrast from previous day CT. Lymph Nodes: No enlarged lymph nodes. Bowel: Dilation of multiple fluid-filled small bowel loops up to 3.6 cm with a tapering transition point in the left lower quadrant (sagittal series 8 image 45). No pneumatosis or portal venous gas. Herniation of the antimesenteric border of a small bowel loop distal to the transition point into the left inguinal canal. Normal appendix. Peritoneum and mesentery: No ascites or free air. Approximately 3.9 x 3.6 x 0.7 cm peripherally enhancing fluid collection in the space of Retzius. Approximately 3.7 x 3.3 x 0.6 cm air-fluid collectiontracking posterior to the right rectus abdominis to the right inguinal canal. These 2 collections are likely continuous. Abdominal wall: Soft tissue density in the right inguinal canal and adjacent subcutaneous fat stranding likely represent postsurgical changes. Right periumbilical subcutaneous fluid and fat stranding. Reproductive organs: Normal. IMPRESSION * Approximately 3.9 x 3.6 x 0.7 cm peripherally enhancing fluid collection in the space of Retzius. Approximately 3.7 x 3.3 x 0.6 cm air-fluid collection tracking posterior to the right rectus abdominis to the right inguinal canal. These 2 collections are likely continuous and are concerning for abscess(es). * Focal soft tissue density in the right inguinal canal likely represents postoperative changes. * At least low-grade small bowel obstruction with a transition point in the left lower quadrant (sagittal series 8 image 45). * Herniation of the antimesenteric border of a small bowel loop distal to the transition point into the left inguinal canal. Please note that the transition point is proximal to and distinct from the herniated loop. Assessment: Edmond Sanches is a 40 y.o. male s/p bilateral hernia repair on 05/30/21 with progressive right abdominal and scrotal pain and CT scan concerning for abdominal/pelvic abscesses. Exam notable for significant tenderness to palpation of the right hemiscrotum. Given his recent hernia repair, it's possible that there is impingement of structure leading into the scrotum. The CT scan does not include the scrotum, so recommend scrotal ultrasound to evaluate scrotal contents and testicular blood flow. Recommendations: - scrotal ultrasound - elevate scrotum for comfort - consider NSAID for scrotal pain - monitor for crepitus or other changes in scrotal exam This patient has been discussed with Dr. Gerardo, Urology Attending. x Consult service will continue to follow patient. Recommendations are above, please page if further consultation required. Khloe Reese MD Urology PGY-2 Daytime Consult Pager #[phone] Urology Attending I have reviewed the chart, Mr. Sanches left AMA before I could examine him. I agree with the findings and the plan of care as documented in Dr. Reese's note. Kyle Gerardo MD, FACS ED Triage - Chloé Saucedo RN - 06/09/2021 3:05 AM EDT Pt presents to the ed for R groin/testicular pain and RLQ pain. Pt hs 3 incision on his lower abdomen. RLQ is firm and tender. Pt states was treated at outside hospital facility for hernia surgery one week ago. Returned to the hospital and was told he had an abscess developing per CT report on his bladder yesterday evening. Pt report testicular swelling. GCS 15. VSS. ABC intact. Will continue to monitor. HPI (Adult) Stated Reason for Visit: pt presents to the e dpost opp problem / abscess History Obtained From: patient documented in this encounter Plan of Treatment Not on filedocumented as of this encounter Procedures Procedure Name Priority Date/Time Associated Diagnosis Comme nts US SCROTUM STAT 06/09/2021 3:45 PM Results f or this EDT procedure are i n the results section. XR ABDOMEN 1 VIEW STAT 06/09/2021 12:05 PM Res ults for this EDT procedure are i n the results section. RAPID COVID-19 PCR STAT 06/09/2021 9:42 AM Res ults for this ([facility]) EDT procedure are in the results section. CT ABDOMEN AND STAT 06/09/2021 5:02 AM Results for this PELVIS W CONTRAST EDT procedure are in the results section. HEMOGRAM STAT 06/09/2021 3:45 AM Results f or this EDT procedure are i n the results section. DIFFERENTIAL, STAT 06/09/2021 3:45 AM Results for this AUTOMATED EDT procedure are i n the results section. GOLD TUBE HOLD STAT 06/09/2021 3:45 AM Results for this EDT procedure are i n the results section. BLUE TUBE HOLD STAT 06/09/2021 3:45 AM Results for this EDT procedure are i n the results section. HC CBC,PLT & AUTO STAT 06/09/2021 3:45 AM DIFF EDT HEPATIC FUNCTION STAT 06/09/2021 3:45 AM Resul ts for this PANEL EDT procedure are i n the results section. BASIC METABOLIC STAT 06/09/2021 3:45 AM Result s for this PANEL (NON-FASTING) EDT procedur e are in the results section. FILM LIBRARY STAT 06/08/2021 12:00 AM Results for this STORAGE ONLY CT EDT procedure ar e in ABDOMEN AND PELVIS the resul ts section. documented in this encounter Results US Scrotum (06/09/2021 3:45 PM EDT) Anatomical Region Laterality Modality Pelvis Ultrasound Specimen (Source) Anatomical Collection Method Collection Time Re ceived Time Location / / Volume Laterality 06/09/2021 3:58 PM EDT Impressions 06/09/2021 4:23 PM EDT ?? No testicular torsion. Edema/seroma at the right inguinal surg ical bed. I have personally reviewed the image(s) and the resident's interpretation and agree with the findings, Merline Montanez MD at 06/09/2021 4:17 PM Electronically signed by: Josr James, Radiology [place] ([phone]), at 08/2021 4:17 PM Thank you for letting us participate in the care of this patient. If you are a [facility] er and have any questions regarding this report, please contact the number above. For patients who have ques tions, please contact the [facility] professio nal that requested your imaging first. ?Merline Montanez, Sect ion Chief Electronically Signed Final Report ?? 04:23 pm Narrative 06/09/2021 4:23 PM EDT Scrotal ? (Signed Final 06/09/2021 04:23 pm) PATIENT INFO: ID #: ? [id number] ?: ??[birth year] (40 yrs)(M) Name: ? EDMOND SANCHES ? Visit Date: 06/09/2021 03:58 pm PERFORMED BY: Performed By: ? Saira Laurent RDMS Attending: ?Tarik RUSS, Merline Garcia Resident: ? Fransico RUSS, Osmany Davalos Referred By: ?EVY POPE Location: ? [place] SERVICE(S) PROVIDED: [facility] - Scrotum and Contents with Limited Vascular ?[id number], [id number] evaluation - [id number] USVASCC - US Vascular Complete ??- [id number] ? [id number] INDICATIONS: scotal pain COMPARISON: Ct abdomen pelvis 06/09/21 RIGHT TESTICLE: Measurement(cm) ? L: ??4.6 ?AP: ?? 2.9 ? TV: ??2.4 Vol (ml): ?16.8 Vascularity: ?Normal color Doppler vascularity Doppler: Arterial: Normal Color Spectral Doppler ? waveform Venous: ?? Normal Color Spectral Dopple r ? waveform Comment: ?Normal texture, no intrat esticular mass. Arterial ? and venous Doppler sp ectral waveforms ? demonstrated. RIGHT EPIDIDYMIS: Head: ?Normal Body: ?Normal, 4 mm simple cyst Tail: ?Normal Vascularity: ?? Normal RIGHT OTHER: Hydrocele: ? Small Varicocele: ?Not visualized LEFT TESTICLE: Measurement(cm) ? L: ??4.9 ?AP: ?? 3.5 ? TV: ??2.4 Vol (ml): ?21.6 Vascularity: ?Normal color Doppler vascularity Doppler: Arterial: Normal Color Spectral Doppler ? waveform Venous: ?? Normal Color Spectral Dopple r ? waveform Comment: ?Normal texture, no intrat esticular mass. Arterial ? and venous Doppler sp ectral waveforms ? demonstrated. LEFT EPIDIDYMIS: Head: ?Normal Body: ?Normal Tail: ?Normal Vascularity: ?? Normal LEFT OTHER: Hydrocele: ? No hydrocele seen Varicocele: ?Not visualized Procedure Note Merline Montanez MD - 06/09/2021 Scrotal (Signed Final 06/09/2021 04:23 pm) PATIENT INFO: ID #: [id number] : [birth year] (40 y rs)(M) Name: EDMOND SANCHES Visit Date: 06/09/20 03:58 pm PERFORMED BY: Performed By: Saira Laurent RDMS Attending: Merline Montanez MD Resident: Osmany Bateman MD Referred By: EVY POPE Location: [place] SERVICE(S) PROVIDED: [facility] - Scrotum and Contents with Limited Vascular [id number], [id number] evaluation - [id number] USVASCC - US Vascular Complete - [id number] INDICATIONS: scotal pain COMPARISON: Ct abdomen pelvis 06/09/21 RIGHT TESTICLE: Measurement(cm) L: 4.6 AP: 2.9 TV: 2.4 Vol (ml): 16.8 Vascularity: Normal color Doppler vascu larity Doppler: Arterial: Normal Color Spectral Doppler waveform Venous: Normal Color Spectral Doppler waveform Comment: Normal texture, no intratestic ular mass. Arterial and venous Doppler spectral waveforms demonstrated. RIGHT EPIDIDYMIS: Head: Normal Body: Normal, 4 mm simple cyst Tail: Normal Vascularity: Normal RIGHT OTHER: Hydrocele: Small Varicocele: Not visualized LEFT TESTICLE: Measurement(cm) L: 4.9 AP: 3.5 TV: 2.4 Vol (ml): 21.6 Vascularity: Normal color Doppler vascu larity Doppler: Arterial: Normal Color Spectral Doppler waveform Venous: Normal Color Spectral Doppler waveform Comment: Normal texture, no intratestic ular mass. Arterial and venous Doppler spectral waveforms demonstrated. LEFT EPIDIDYMIS: Head: Normal Body: Normal Tail: Normal Vascularity: Normal LEFT OTHER: Hydrocele: No hydrocele seen Varicocele: Not visualized IMPRESSION No testicular torsion. Edema/seroma at the right inguinal surg ical bed. I have personally reviewed the image(s) and the resident's interpretation and agree with the findings, Merline Montanez MD at 06/09/2021 4:17 PM Electronically signed by: Josr James, [facility] ([phone]), at 08/2021 4:17 PM Thank you for letting us participate in the care of this patient. If you are a [facility] er and have any questions regarding this report, please contact the number above. For patients who have ques tions, please contact the [facility] professio nal that requested your imaging first. Merline Montanez, [employer]urb[employer] Technician Electronically Signed Final Report 06/09 04:23 pm Evy Pope MD IMG US GEN ORDERABLES XR Abdomen 1 view (Generic) (06/09/2021 12:05 PM EDT) Anatomical Region Laterality Modality Abdomen N/A Digital Radiography Specimen (Source) Anatomical Location Collection Method / Collectio n Time Received Time / Laterality Volume Impressions 06/09/2021 12:50 PM EDT The enteric tube travels beyond the diap hragm with tip and sidehole at in upper mid abdomen, presumably in body of stoma ch. Lungs are clear. Thank you for letting us participate in the care of this patient. ??If you are a health care provider and have any questi ons regarding this report, please contact the number below. ??For patients who have questions please contact the health caretaker resort that requested your imaging first. ? Electronically signed by: Magy Ariza MD, [facility] ([phone]), at 06/09/2021 12:50 PM Narrative 06/09/2021 12:50 PM EDT EXAMINATION: XR ABDOMEN 1 VIEW (GENERIC) CLINICAL HISTORY: NG tube placement TECHNIQUE: COMPARISON: None FINDINGS: And Procedure Note Magy Ariza MD - 06/09/2021Formatt ing of this note might be different from the original. EXAMINATION: XR ABDOMEN 1 VIEW (GENERIC) CLINICAL HISTORY: NG tube placement TECHNIQUE: COMPARISON: None FINDINGS: And IMPRESSION The enteric tube travels beyond the diap hragm with tip and sidehole at in upper mid abdomen, presumably in body of stoma ch. Lungs are clear. Thank you for letting us participate in the care of this patient. If you are a health care provider and have any questi ons regarding this report, please contact the number below. For patients w ho have questions please contact the health caretaker resort that requested your imaging first. Electronically signed by: Magy Ariza MD, [facility] ([phone]), at 06/09/2021 12:50 PM Evy Pope MD IMG DX ORDERABLES COVID-19 PCR (06/09/2021 9:42 AM EDT) [facility] Method Time Signature SARS-CoV-2 Not Detected Not Detected STEPHANI RNA PCR [facility] Comment: This result should be interpreted in com bination with the clinical observations, patient history and epidem iological information. For testing of asymptomatic individuals, assay performa nce characteristics and clinical utility have not been evaluated. Testing for SARS-CoV-2 (Severe acute respiratory syndrome coronavirus 2, form erly known as 2019 novel coronavirus or 2019-nCoV) to aid in the diagnosis of CO VID-19 is performed using the Simplexa COVID-19 Direct Assay by AdRocketflori Mengero as authorized by the FDA issued Emergency Use Authorization (EUA). This assay is intended for In-vitro Diagnostic (IVD) use with nasopharyngeal swabs collected from individuals meeting the CDC criteria for testing. e assay is performed based on the instructions for use and additional guid ance provided by the FDA. Testing is performed in the Microbiology Laboratory within the Department of Pathology and Laboratory Medicine at [facility], certified under the Clinical Laboratory Improvement Amendmen ts of 1988 (CLIA), 42 U.S.C. section 263a, to perform high complexity tests. Assay performance has been verified according to clinical laboratory regulat ory requirements. Test results are provided above. A resul t of Not Detected indicates that the viral RNA target is not present but does not preclude SARS-CoV-2 infection. False negative results may occur if a sp ecimen is improperly collected, transported or handled; if amplification inhibitors are present; or if inadequate numbers of viral particles ar e present in the specimen. A result of Detected suggests a current or recent infection and the patient is presumed to be infected. Positive and negative pr edictive values for this test are highly dependent on disease prevalence. A result of Invalid indicates the inability to conclusively determine the presence or absence of SARS-CoV-2 RNA in the sample which can be due to a vari ety of factors. Recollection is recommended in the case of an invalid re sult. CDC COVID-19 criteria for testing on hum an specimens and clinical management guidance information are available at th e CDC Coronavirus Disease 2019 (COVID-19) webpage under Information fo r Healthcare Professionals (https://www.cdc.gov/coronavirus/2019-nc ov/hcp/index.html). Additional information about this and ot her EUA tests can be found in provider and patient fact sheets at the following FDA website: https://www.fda.gov/medical-devices/karlspjzzuq-iodfxws-4057-cnnjx-94-qfcekisqd- pwl-cmsjdjzralhcmf-vsunesn-devices/lxwly-kudxdgyydfs-ijml SARS-CoV-2 Source PROFESSOR OF VEGETABLE SCIENCE Swab [facility] Specimen (Source) Anatomical Collection Method Collection Time Re ceived Time Location / / Volume Laterality Nasopharyngeal Swab 06/09/2021 9:42 06/09 AM EDT 10:31 AM EDT Comment: Symptoms->Surveillance Resulting Agency Comment Spec In Lab Javier Perera DO MICROBIOLOGY - GENERAL ORDER MAUREEN Performing Organization Address City/State/[place] [address] Abdomen & Pelvis w Contrast (06/09/2021 5:02 AM EDT) Anatomical Region Laterality Modality Abdomen, Pelvis Computed Tomography Specimen (Source) Anatomical Collection Method Collection Time Re ceived Time Location / / Volume Laterality 06/09/2021 5:21 AM EDT Impressions 06/09/2021 6:38 AM EDT * ??Approximately 3.9 x 3.6 x 0.7 cm peripherally enhancing fluid collection in the space of Retzius. Approximately 3.7 x 3.3 x 0.6 cm air-fluid collection tracking posterior to the right rectus a bdominis to the right inguinal canal. These 2 collections are likely continuou s and are concerning for abscess(es). * ??Focal soft tissue density in the rig ht inguinal canal likely represents postoperative changes. * ??At least low-grade small bowel obstr uction with a transition point in the left lower quadrant (sagittal series 8 i mage 45). * ??Herniation of the antimesenteric bor ainsley of a small bowel loop distal to the transition point into the left inguinal canal. Please note that the transition point is proximal to and distinct from t he herniated loop. Preliminary report signed by: Jay Jay Thompson at 06/09/2021 5:59 AM I have personally reviewed the image(s) and the resident's interpretation and agree with the findings, Mina Sepulveda MD at 06/09/2021 6:38 AM Thank you for letting us participate in the care of this patient. ??If you are a health care provider and have any questi ons regarding this report, please contact the number below. ??For patients who have questions please contact the health caretaker resort that requested your imaging first. ? Electronically signed by: Josr Izaguirre, [facility] ([phone]), at 06/09/2021 6:38 AM Narrative 06/09/2021 6:38 AM EDT EXAMINATION: CT ABDOMEN AND PELVIS W CONTRAST CLINICAL HISTORY: Hernia, complicated right-sided inguinal hernia, concern for strangulation TECHNIQUE: Helical CT of the abdomen and pelvis was performed following the intravenous administration of contrast. Administered 78.0 ml of OMNIPAQUE 350.00 mg/ml. Oral contrast was not administere d. COMPARISON: CT abdomen/pelvis 06/08/2021 outside institution FINDINGS: Lower chest: Bilateral subsegmental atel ectasis.. Liver: Normal size and attenuation. Foca l fatty change along the falciform ligament. Bile ducts: Nondilated. Gallbladder: Contracted, limiting evalua tion. No calcified gallstones. Pancreas: Normal attenuation without amena mike dilatation. Spleen: Normal. Adrenals: Normal. Kidneys: Symmetric size and enhancement. No hydronephrosis. Left extrarenal pelvis containing small amount of excret ed iodinated contrast material. Urinary Bladder: Normal and distended wi th iodinated contrast from previous day CT. Vasculature: No aneurysm. Lymph Nodes: No enlarged lymph nodes. Bowel: Dilation of multiple fluid-filled small bowel loops up to 3.6 cm with a tapering transition point in the left lo wer quadrant (sagittal series 8 image 45). No pneumatosis or portal venous gas . Herniation of the antimesenteric border of a small bowel loop distal to t he transition point into the left inguinal canal. Normal appendix. Peritoneum and mesentery: No ascites or free air. Approximately 3.9 x 3.6 x 0.7 cm peripherally enhancing fluid collecti on in the space of Retzius. Approximately 3.7 x 3.3 x 0.6 cm air-flu id collection tracking posterior to the right rectus abdominis to the right ingu inal canal. These 2 collections are likely continuous. Abdominal wall: Soft tissue density in t he right inguinal canal and adjacent subcutaneous fat stranding likely repres ent postsurgical changes. Right periumbilical subcutaneous fluid and fat stranding. Reproductive organs: Normal. Osseous structures: No acute or suspicio us lesions. Procedure Note Bernardo Sepulveda MD - 06/09/2021Formattin g of this note might be different from the original. EXAMINATION: CT ABDOMEN AND PELVIS W CON TRAST CLINICAL HISTORY: Hernia, complicated right-sided inguinal hernia, concern for strangulation TECHNIQUE: Helical CT of the abdomen and pelvis was performed following the intravenous administration of contrast. Administered 78.0 ml of OMNIPAQUE 350.00 mg/ml. Oral contrast was not administere d. COMPARISON: CT abdomen/pelvis 06/08/2021 outside institution FINDINGS: Lower chest: Bilateral subsegmental atel ectasis.. Liver: Normal size and attenuation. Foca l fatty change along the falciform ligament. Bile ducts: Nondilated. Gallbladder: Contracted, limiting evalua tion. No calcified gallstones. Pancreas: Normal attenuation without amena mike dilatation. Spleen: Normal. Adrenals: Normal. Kidneys: Symmetric size and enhancement. No hydronephrosis. Left extrarenal pelvis containing small amount of excret ed iodinated contrast material. Urinary Bladder: Normal and distended wi th iodinated contrast from previous day CT. Vasculature: No aneurysm. Lymph Nodes: No enlarged lymph nodes. Bowel: Dilation of multiple fluid-filled small bowel loops up to 3.6 cm with a tapering transition point in the left lo wer quadrant (sagittal series 8 image 45). No pneumatosis or portal venous gas . Herniation of the antimesenteric border of a small bowel loop distal to t he transition point into the left inguinal canal. Normal appendix. Peritoneum and mesentery: No ascites or free air. Approximately 3.9 x 3.6 x 0.7 cm peripherally enhancing fluid collecti on in the space of Retzius. Approximately 3.7 x 3.3 x 0.6 cm air-flu id collection tracking posterior to the right rectus abdominis to the right ingu inal canal. These 2 collections are likely continuous. Abdominal wall: Soft tissue density in t he right inguinal canal and adjacent subcutaneous fat stranding likely repres ent postsurgical changes. Right periumbilical subcutaneous fluid and fat stranding. Reproductive organs: Normal. Osseous structures: No acute or suspicio us lesions. IMPRESSION * Approximately 3.9 x 3.6 x 0.7 cm perip herally enhancing fluid collection in the space of Retzius. Approximately 3.7 x 3.3 x 0.6 cm air-fluid collection tracking posterior to the right rectus a bdominis to the right inguinal canal. These 2 collections are likely continuou s and are concerning for abscess(es). * Focal soft tissue density in the right inguinal canal likely represents postoperative changes. * At least low-grade small bowel obstruc tion with a transition point in the left lower quadrant (sagittal series 8 i mage 45). * Herniation of the antimesenteric borde r of a small bowel loop distal to the transition point into the left inguinal canal. Please note that the transition point is proximal to and distinct from t he herniated loop. Preliminary report signed by: Jay Jay Thompson at 06/09/2021 5:59 AM I have personally reviewed the image(s) and the resident's interpretation and agree with the findings, Mina Sepulveda MD at 06/09/2021 6:38 AM Thank you for letting us participate in the care of this patient. If you are a health care provider and have any questi ons regarding this report, please contact the number below. For patients w ho have questions please contact the health caretaker resort that requested your imaging first. Keaton Hutchison MD IMG CT ORDERABLES Gold Tube HOLD (06/09/2021 3:45 AM EDT) athologist Signature Gold Hold Sample in [facility]. [facility] Specimen Anatomical Collection Method Collection Time Receive d Time (Source) Location / / Volume Laterality Blood Venous Draw / 06/09/2021 3:45 AM 09/12/20 21 4:12 Unknown EDT AM EDT Анна Moon MD CHEMISTRY ORDERABLES Performing Organization Address City/State/ZIP Code Phon e Number [address] Blue Tube HOLD (06/09/2021 3:45 AM EDT) P athologist Signature Blue Hold Sample in [facility] Specimen Anatomical Collection Method Collection Time Receive d Time (Source) Location / / Volume Laterality Blood Venous Draw / 06/09/2021 3:45 AM 06/09/20 21 4:11 Unknown EDT AM EDT Анна Moon MD HEMATOLOGY ORDERABLES Performing Organization Address City/[facility]/ZIP Code Phon e Number [address] (ABNORMAL) Differential, Automated (06/09/2021 3:45 AM EDT) [facility] Method Time Signature Neutrophils % 72.9 % [facility] Neutr Abs (ANC) 8.65 (H) 1.70 - [facility] 6.10 [facility] x10(3)/[facility] LABORATORY Lymphocytes % 14.8 % [facility] Lymphocytes Abs 1.8 0.9 - 3.2 [facility] x10(3)/[facility] LABORATORY Monocytes % 9.1 % [facility] Monocyte Abs 1.1 (H) 0.3 - 0.9 [facility] x10(3)/[facility] LABORATORY Eosinophils % 2.3 % [facility] Eosinophils Abs 0.3 0.0 - 0.4 [facility] x10(3)/[facility] LABORATORY Basophils % 0.3 % [facility] Basophils Abs 0.0 0.0 - 0.1 [facility] x10(3)/[facility] LABORATORY Immature Gran % 0.60 % [facility] Comment: Immature granulocytes(IG's)percentage an d absolute count will include metamyelocytes, myelocytes, and promyelo cytes. Blood smears from CBCs yielding IG's will be scanned manually for concrhea parr. If this scan disagrees with the automated IG or if promyelocytes are not ed, a manual differential will be performed. [place] Gran Abs 0.07 (H) 0.00 - 0.04 x10(3)/[facility] LABORATORY Specimen Anatomical Collection Method Collection Time Receive d Time (Source) Location / / Volume Laterality Blood 06/09/2021 3:45 AM 4:10 EDT AM EDT Resulting Agency Comment Spec In Lab Анна Moon MD HEMATOLOGY ORDERABLES Performing Organization Address City/State/[place] [address] (ABNORMAL) Hemogram (06/09/2021 3:45 AM EDT) Analysis Performed At Patho logist Time Signature WBC 11.9 (H) 4.0 - 9.5 [facility] x10(3)/[facility] LABORATORY RBC 4.40 (L) 4.58 - [facility] 5.54 [facility] x10(6)/[facility] LABORATORY Hemoglobin 13.4 (L) 13.7 - [facility] 16.[facility] gm/dL [facility] Hematocrit 38.8 (L) 40.5 - [facility] 48.5 % [facility] MCV 88.2 82.9 - [facility] 93.1 [facility] LABORATORY MCH 30.5 27.5 - [facility] 32.1 pg [facility] MCHC 34.5 32.0 - [facility] 35.7 gm/dL [facility] Platelets 285 145 - 357 [facility] x10(3)/[facility] LABORATORY RDWSD 39.8 36.0 - [facility] 45.0 [facility] LABORATORY RDWCV 12.1 11.4 - [facility] 13.8 % [facility] MPV 9.7 7.6 - 12.9 [facility] LABORATORY nRBC % Auto 0.0 % [facility] nRBC Abs Auto 0.000 0.000 - [facility] 0.000 [facility] x10(3)/[facility] LABORATORY Specimen Anatomical Collection Method Collection Time Receive d Time (Source) Location / / Volume Laterality Blood 06/09/2021 3:45 AM 1 4:10 EDT AM EDT Resulting Agency Comment Spec In Lab Анна Moon MD HEMATOLOGY ORDERABLES Performing Organization Address City/State/[place] [address] Hepatic Function Panel (06/09/2021 3:45 AM EDT) athologist Signature Total Protein 7.0 6.1 - 8.0 [facility] gm/dL [facility] Albumin 4.1 3.2 - 5.2 [facility] gm/dL [facility] AST 11 0 - 39 [facility] unit/L [facility] ALT 7 0 - 55 [facility] unit/L [facility] Alk Phos 53 40 - 130 [facility] unit/L [facility] Total 0.2 0.2 - 1.3 [facility] Bilirubin mg/dL [facility] Bili, Direct 0.1 0.0 - 0.3 [facility] mg/dL [facility] Specimen Anatomical Collection Method Collection Time Receive d Time (Source) Location / / Volume Laterality Blood 06/09/2021 3:45 AM 1 4:10 EDT AM EDT Resulting Agency Comment Spec In Lab Keaton Hutchison MD CHEMISTRY ORDERABLES Performing Organization Address City/[facility]/[place] [address] Basic Metabolic Panel (non-fasting) (06/09/2021 3:45 AM EDT) athologist Signature Glucose Lvl 98 65 - 199 [facility] mg/dL [facility] Comment: Diabetes: >=200 mg/dL plus symp toms BUN 14 10 - 20 mg/dL [facility] Creatinine 0.80 0.80 - 1.50 mg/dL [facility] Sodium 139 135 - 145 mmol/L [facility] Potassium 3.9 3.5 - 5.0 mmol/L [facility] Comment: Please note: ??Patients with WBC >100,00 0 may have falsely elevated Potassium levels. ??For accurate Potassium quantif ication in these patients send serum separator tube (gold top) for subsequent determinations. ??Contact the Clinical Chemistry Laboratory if there are any qu estions. Chloride 102 98 - 107 mmol/L [facility] CO2 27 22 - 31 mmol/L [facility] Anion Gap 10 5 - 15 mmol/L [facility] Calcium 9.0 8.5 - 10.5 mg/dL [facility] Estimated GFR 113 >=60 mL/min/1.73 m?? [facility] Comment: This patient? s estimated glomerular filtration rate (eGFR) is between 113 mL/min/1.73 m2 (patients with less muscl e mass per kg body weight) and 130 mL/min/1.73 m2 (patients with more muscl e mass per kg body weight) as determined by the CKD-EPI equation. Asse ssment of eGFR is not appropriate when creatinine concentrations are rapidly ch anging. For clinical decisions where creatinine clearance will affect therapy , a 24-hour urine creatinine clearance may be advised. Assignment of CKD stage 1 - 5 for patien ts with an eGFR near the transition point between stages may be based on cli nical assessment of muscle mass and symptoms in addition to eGFR. Specimen Anatomical Collection Method Collection Time Receive d Time (Source) Location / / Volume Laterality Blood 06/09/2021 3:45 AM 4:10 EDT AM EDT Resulting Agency Comment Spec In Lab Keaton Hutchison MD CHEMISTRY ORDERABLES Performing Organization Address City/State/[place] [address] Film Library- Storage Only CT Abdomen & Pelvis (06/08/2021 12:00 AM EDT) Specimen (Source) Anatomical Location Collection Method / Collectio n Time Received Time / Laterality Volume Narrative [facility] - 06/09/2021 4:51 AM EDT This exam is auto-finalizing. It's purpo se is for storage only. Keaton Hutchison MD [facility] ORDERABLES Performing Organization Address City/State/ZIP Code Phon e Number [facility] [place], [place] documented in this encounter Visit Diagnoses Diagnosis Intra-abdominal abscess - Primary Peritoneal abscess documented in this encounter Admitting Diagnoses Diagnosis Intra-abdominal abscess Peritoneal abscess documented in this encounter Administered Medications Inactive Administered Medications - up to 3 most recent administrations Medication Order MAR Action Action Date Dose Rate Site acetaminophen (Tylenol) tablet Given 06/09/2021 6:50 PM EDT 1,00 0 mg 1,000 mg 1,000 mg, Oral, EVERY 6 HOURS PRN, Starting on 06/09/21 at 1120, Until Thu06/10/21 at 0215, Pain, for MODERATE pain (4-6), Should be used concomitantly if other analgesics are ordered. Maximum dose of acetaminophen is 4000 mg from all sources in 24 hours., Routine ceFEPime (Maxipime) 2g vial attach to New Bag 06/09/2021 11:47 AM EDT 2 g 200 mL/hr sodium chloride 0.9% 100 mL Mini-Bag Plus 2 g 2 g, Intravenous, EVERY 8 HOURS, First dose on 06/09/21 at 1142, Until Discontinued, Administer over 30 Minutes, Indication for (Active or Suspected): GI/Intra-abdominal cefTRIAXone (Rocephin) 1 g vial New Bag 06/09/2021 4:57 PM EDT 900 mg 100 mL/hr attach to sodium chloride 0.9% 50 mL Mini-Bag Plus 900 mg, Intravenous, ONCE, 1 dose, On 06/09/21 at 1415, Administer over 30 Minutes, infuse remainder of the bag over 30 min and monitor the patient for 1 hour once infusion is complete, Indication for (Active or Suspected): Other (See comment) cefTRIAXone (Rocephin) bolus from Bolus from Bag 06/09/2021 2:19 PM E DT 100 mg bag 100 mg 100 mg, Intravenous, ONCE, 1 dose, On 06/09/21 at 1331, Administer over 3 min and monitor patient for 30 min, Routine, Indication for (Active or Suspected): Other (See comment) diphenhydrAMINE (Benadryl) (50 mg/mL) in jection 50 mg 50 mg, Intravenous, EVERY 2 HOURS PRN, S tarting on 06/09/21 at 1328, Until 06/10/21 at 0215, Itching, hives and itch ing, Notify service if given. May give up to 400 mg per day, Routine EPINEPHrine (ADRENALIN) injection kit fo r anaphylaxis 0.3 mg 0.3 mg, Intramuscular, EVERY 5 MIN PRN, 1 dose, Starting on 06/09/21 at 1328, Until Thu06/10/21 at 0215, Anaphylaxis, anaphylactic reaction, Notify service if given. Warning Vesicant/Irritant Medication , Rou laurie HYDROmorphone (Dilaudid) (0.5 mg/0.5 mL) Given 06/09/2021 6:51 P M EDT 0.2 mg injection syringe 0.2 mg 0.2 mg, Intravenous, EVERY 2 HOURS PRN, Starting on 06/09/21 at 1120, Until Thu06/10/21 at 0215, Pain, for SEVERE pain (7-10), May repeat once in 30 minutes if pain not relieved., Routine Given 06/09/2021 11:47 AM EDT 0.2 mg iohexoL (Omnipaque) (350 mg/mL) injection Given 06/09/2021 5:03 AM EDT 78 mLs solution 0-200 mL 0-200 mL, Intravenous, ONCE PRN, 1 dose, Starting on Thu06/09/21 at 0503, Until Thu06/09/21 at 0503, Per Protocol, Warning Vesicant/Irritant Medication , Radiology Contrast, Routine metroNIDAZOLE (Flagyl) 500 mg in New Bag 06/09/2021 7:43 PM 500 mg 200 mL/hr sodium chloride 0.9% 100 mL infusion EDT 500 mg, Intravenous, EVERY 8 HOURS, First dose on 06/09/21 at 1151, Until Discontinued, Administer over 30 Minutes, Indication for (Active or Suspected): Anaerobic infection-GI/Intrabdominal New Bag 06/09/2021 12:11 PM EDT 500 mg 200 mL/hr morphine (2 mg/mL) injection 2 mg Given 06/09/2021 5:41 AM EDT 2 mg 2 mg, Intravenous, ONCE, 1 dose, On Thu06/09/21 at 0536, STAT oxyCODONE (Roxicodone) tablet 5 mg Given 06/09/2021 1:48 PM EDT 5 mg 5 mg, Per NG tube, ONCE, 1 dose, On 06/09/21 at 1325, Routine pantoprazole (Protonix) injection 40 mg Given 06/09/2021 11:22 AM EDT 40 mg 40 mg, Intravenous, DAILY, First dose on 06/09/21 at 1122, Until Discontinued, Reconstitute with 10 mL of normal saline to a concentration of 4 mg/mL and infuse slowly over 2 minutes. , Routine pantoprazole EC (Protonix) tablet 40 mg 40 mg, Oral, DAILY, First dose on Sun 09/17 at 1122, Until Discontinued, DO NOT CRUSH OR OPEN If unable to take PO, may give IV, Rou laurie phenoL 1.4% (Chloraseptic) spray 1 spray 1 spray, Oral, EVERY 2 HOURS PRN, Starting on Sun 06/09 at 1246, Until 06/10/21 at 0215, Irritation, Routine sodium chloride 0.9 % (flush) (BD PosiFlush Given 06/09/2021 8:1 1 PM EDT 5 mLs Normal Saline 0.9) flush 5 mL 5 mL, Intravenous, 2 TIMES DAILY, First dose on 06/09/21 at 1430, Until Discontinued, Recovery (Recovery-Hospital Unit), Routine Given 06/09/2021 2:20 PM EDT 5 mLs documented in this encounter Active and Recently Administered Medications Times are shown in EDT. Scheduled Medication Order 06/07/2021 06/08/2021 06/09/2021 ceFEPime (Maxipime) 2g vial attach to so dium chloride 0.9% 100 mL Mini-Bag Plus 2 g (CANCELED) 1147 (New Bag - Prov ider: Bc Harper RN)1154 (Stopped - Provider: Bc Harper RN) 2 g, Intravenous, EVERY 8 HOURS, First d ose on 06/09/21 at 1142, Until Discontinued, Administer over 30 Minutes, Indication for (Active or Suspected): GI/Intra-abdominal cefTRIAXone (Rocephin) 1 g vial attach t o sodium chloride 0.9% 50 mL Mini-Bag Plus (COMPLETED) 1657 (New Bag - Prov ider: Luci Shields RN - Comment: test dose administered)1727 (Stopped - Provider: Luci Shields RN) 900 mg, Intravenous, ONCE, 1 dose, On Arredondo n 06/09/21 at 1415, Administer over 30 Minutes, infuse remainder of the bag over 30 min and monitor the patient for 1 hour once infusion is complete, Indication for (Active or Suspected): Other (See comment) cefTRIAXone (Rocephin) bolus from bag 100 mg (COMPLETED) 1419 (Bolus from Bag - Provider: Luci Shields RN - Comment: Test dose) 100 mg, Intravenous, ONCE, 1 dose, On Arredondo n 06/09/21 at 1331, Administer over 3 min and monitor patient for 30 min, Routine lidocaine (Glydo) 2 % gel 11 mL 1343 (Not Given - Provider: Luci Shields RN - Reason: Medication Discontinued) 11 mL, INTRA-URETHRAL, ONCE, 1 dose, On 06/09/21 at 1255, Rou laurie metroNIDAZOLE (Flagyl) 500 mg in sodium chloride 0.9% 100 mL inf usion 1211 (New Bag - Provider: Bc Harper RN)1241 (Stopped - Provider: Bc Harper RN)1943 (New Bag - Provider: Nohemi Robertson LPN)2013 (Stopped - Provider: Nohemi Robertson LPN) 500 mg, Intravenous, EVERY 8 HOURS, Firs t dose on 06/09/21 at 1151, Until Discontinued, Administer over 30 Minutes, Indication for (Active or Suspected): Anaerobic infection-GI/Intrabdominal morphine (2 mg/mL) injection 2 mg (COMPLETED) 0541 (Given - Provider: Chloé Saucedo RN) 2 mg, Intravenous, ONCE, 1 dose, On 06/09/21 at 0536, STAT oxyCODONE (Roxicodone) tablet 5 mg (COMPLETED) 1348 (Given - Provider: Luci Shields RN) 5 mg, Per NG tube, ONCE, 1 dose, On 06/09/21 at 1325, Routine pantoprazole (Protonix) injection 40 mg(Linked Group 1) 1122 (Given - Provider: Bc Harper RN) 40 mg, Intravenous, DAILY, First dose on 06/09/21 at 1122, Until Discontinued, Reconstitute with 10 mL of normal saline to a concentration of 4 mg/mL and infuse slowly over 2 minutes. , Routine pantoprazole EC (Protonix) tablet 40 mg(Linked Group 1) 1122 (See Alternative - Provider: Bc Harper RN) 40 mg, Oral, DAILY, First dose on Sun 09/17 at 1122, Until Discontinued, DO NOT CRUSH OR OPEN If unable to take PO, may give IV, Routine sodium chloride 0.9 % (flush) (BD PosiFlush Normal Saline 0.9) f lush 5 mL 1420 (Given - Provider: Luci Shields, EMILY)2010 (Given - Provider: Carina Delacruz RN) 5 mL, Intravenous, 2 TIMES DAILY, First dose on 06/09/21 at 1430, Until Discontinued, Recovery (Recovery-Hospital Unit), Routine sodium chloride 0.9% 100 mL IV bolus 172 (Not Given - Provider: Luci Shields RN - Reason: Patient/family refused) at 100 mL/hr, Intravenous, ONCE, 1 dose, On 06/09/21 at 1430 PRN Medication Order 06/07/2021 06/08/2021 06/09/2021 acetaminophen (Tylenol) tablet 1,000 mg 1850 (Given - Provider: Luci Shields RN) 1,000 mg, Oral, EVERY 6 HOURS PRN, Start ing on 06/09/21 at 1120, Until 06/10/21 at 0215, Pain, for MODERATE pain (4-6), Should be used concomitantly if other analgesics are ordered. Maximum dose o f acetaminophen is 4000 mg from all sources in 24 hours., Routin e acetaminophen (Tylenol) tablet 650 mg 650 mg, Oral, EVERY 4 HOURS PRN, Startin g on 06/09/21 at 1120, Until 06/10/21 at 0215, Pain, for MILD pain (1-3), Maximum dose of acetaminophen is 4000 mg from all sources in 24 hours. When ordere d for pain, acetaminophen should be give n even when other ordered pain medications are indicated., Routine diphenhydrAMINE (Benadryl) (50 mg/mL) injection 50 mg 50 mg, Intravenous, EVERY 2 HOURS PRN, S tarting on 06/09/21 at 1328, Until Thu06/10/21 at 0215, Itching, hives and itching, Notify service if given. May give up to 400 mg per day, Routine EPINEPHrine (ADRENALIN) injection kit for anaphylaxis 0.3 mg 0.3 mg, Intramuscular, EVERY 5 MIN PRN, 1 dose, Starting on Thu06/09/21 at 1328, Until Thu06/10/21 at 0215, Anaphylaxis, anaphylactic reaction, Notify service if given. Warning Vesicant/Irritant Medication , Routine HYDROmorphone (Dilaudid) (0.5 mg/0.5 mL) injection syringe 0.2 m g 1147 (Given - Provider: Bc Harper RN)1851 (Given - Provider: Luci Shields RN) 0.2 mg, Intravenous, EVERY 2 HOURS PRN, Starting on Thu06/09/21 at 1120, Until Thu06/10/21 at 0215, Pain, for SEVERE pain (7-10), May repeat once in 30 minutes if pain not relieved., Routine iohexoL (Omnipaque) (350 mg/mL) injection solution 0-200 mL (COM PLETED) 0503 (Given - Provider: Maribell Archer) 0-200 mL, Intravenous, ONCE PRN, 1 dose, Starting on Thu06/09/21 at 0503, Until Thu06/09/21 at 0503, Per Protocol, Warning Vesicant/Irritant Medication , Radiology Contrast, Routine lidocaine (Xylocaine) 1% (10 mg/mL) injection 3 mg 3 mg (0.3 mL), Subcutaneous, ONCE PRN, 1 dose, Starting on Thu06/09/21 at 1334, Until Thu06/10/21 at 0215, for discomfort with PIV insertion, Recovery (Recovery-Hospital Unit), Routine naloxone (Narcan) (0.4 mg/mL) injection 0.2 mg 0.2 mg, Intravenous, EVERY 1 MIN PRN, St arting on 06/09/21 at 1334, Until Thu06/10/21 at 0215, Opioid Reversal, If respiratory rate less than 6 OR the patient is unable to arouse OR SpO2 is declining , Give for respiratory rate of less than or equal to 6 and patient is heavily sedated or unarousable. May repeat every 60 seconds to increase respiratory rate. DO NOT exceed 2 mg total dose., Recovery (Recovery-Hospital Unit), Routine phenoL 1.4% (Chloraseptic) spray 1 spray 1 spray, Oral, EVERY 2 HOURS PRN, Starti ng on 06/09/21 at 1246, Until 06/10/21 at 0215, Irritation, Routine sodium chloride 0.9 % (flush) (BD PosiFlush Normal Saline 0.9) f lush 5-20 mL 5-20 mL, Intravenous, EVERY 1 MIN PRN, S tarting on 06/09/21 at 1334, Until 06/10/21 at 0215, flush, Flush pertains to all indwelling lines. Flush per protocol found in the job aid using the link p rovided on this medication record., Recovery (Recovery-Hospi mike Unit), Routine Linked Groups Order Group 1: pantoprazole EC (Protonix) tablet 40 mgJump to med 40 mg, Oral, DAILY, First dose on Sun 09/17 at 1122, Until Discontinued
DO NOT CRUSH OR OPEN If unable to take PO, may give IV
Routine Or pantoprazole (Protonix) injection 40 mgJump to med 40 mg, Intravenous, DAILY, First dose on 06/09/21 at 1122, Until Discontinued
Reconstitute with 10 mL of normal saline to a concentration of 4 mg/mL and infuse slowly over 2 minutes.
Routine documented in this encounter Care Teams Senior Sales Administrator Relationship Specialty Start Date End Date Supa Bolton MD PCP - General General Internal Medicine 06/09/21 [address] [place] [id number] documented as of this encounter
--- OUTSIDE RECORDS SUMMARY | 2022-07-13 18:39 | XMS_ITS | CCD ---
:1980 Author Care Team Providers Name Role Phone AMY ADORNO Attending Physician Unavailable AMY ADORNO Rounding (Secondary) Physician Unavailab le Vital Signs Unknown or Not Available. Allergies Allergy Code Allergy Type Reaction Status No Known Drug Allergies 0 No known drug allergies Active Procedures Unknown or Not Available. History of Immunizations Unknown or Not Available. Problems Unknown or Not Available. Results Unknown or Not Available. Active Medications Medications Administered During Visit Unknown or Not Available. Encounters Encounter Diagnosis Diagnosis Code Start Date Right lower quadrant pain [id number] 01/20/2022 Social History Smoking Status Code Start Date End Date Current every day smoker [id number] Patient Decision Aids Unknown or Not Available. Discharge Instructions You were admitted to [facility] on 01/20/2022 10:03 with a principal diagnosis of Right lower quadrant pain You were discharged from [facility] on 01/20/2022 00:00 Should you have any questions prior to d ischarge, please contact a member of your healthcare team. If you have left the spital and have any questions, please contact your primary care physician. Chief Complaint and Reason For Visit Unknown or Not Available. Function Status Unknown or Not Available. Plan of Care Unknown or Not Available. Referral/Transition of Care Unknown or Not Available.
--- OUTSIDE RECORDS SUMMARY | 2022-07-13 18:39 | XMS_ITS | CCD ---
:1980 Author Care Team Providers Name Role Phone MARY BUSH Attending Physician Unavailable MARY BUSH Er Physician 1 RONNY Oakes Registered Nurse Unavailable Vital Signs Vital Sign Value Unit Date/Time Recent/Initial? BMI (Body Mass Index) 21.7 kg/m^2 12/31/2021 13:15 In itial VS Weight Measured 160 lbs 12/31/2021 13:15 Initial VS Height 72 in 12/31/2021 13:15 Initial VS BSA (Body Surface Area) 1.92 m^2 12/31/2021 13:15 Initial VS BP Systolic 147 mmHg 12/31/2021 13:15 Initial VS BP Diastolic 98 mmHg 12/31/2021 13:15 Initial VS Respiratory Rate 18 bpm 12/31/2021 13:15 Initial VS Heart Rate 80 bpm 12/31/2021 13:15 Initial VS O2 % BldC Oximetry 99 % 12/31/2021 13:15 Initi al VS Body Temperature 36 degrees 12/31/2021 13:15 Initial VS Allergies Allergy Code Allergy Type Reaction Status No Known Drug Allergies 0 No known drug allergies Active Procedures Unknown or Not Available. History of Immunizations Unknown or Not Available. Problems Unknown or Not Available. Results BASIC METABOLIC PANEL (BMP) - Collect Da te/Time: 12/31/2021 13:35 Test Name Code Test Result Test Units Test Ref Range GLUCOSE 2345-7 100 mg/dL L=70 H=116 BUN 3094-0 12 mg/dL L=6 H=25 CREATININE 2160-0 1.13 mg/dL L=0.67 H=1.17 SODIUM SERUM 2951-2 140 mmol/L L=136 H=145 POTASSIUM SERUM 2823-3 3.8 mmol/L L=3.4 H=5.2 CHLORIDE SERUM 2075-0 102 mmol/L L=96 H=110 CARBON DIOXIDE (CO2) 2028-9 31 mmol/L L=22 H= 34 ANION GAP 29656-2 7.3 mmol/L CALCIUM SERUM 50086-8 9.2 mg/dL L=8.2 H=10.2 AGE 41 years eGFR (non-Afr.Amer.) 44715-5 72 mL/min eGFR (Afr-Israeli) 48318-2 87 mL/min CBC W/ DIFFERENTIAL* - Collect Date/Time : 12/31/2021 13:35 Test Name Code Test Result Test Units Test Ref Range WBC 6690-2 11.98 th/cmm L=5.00 H=10.00 NEUT % 81.9 % L=40.0 H=80.0 LYMPH % 11.3 % L=10.0 H=50.0 MONO % 55622-9 5.0 % L=2.0 H=12.0 EOS % 1.1 % L=0.0 H=8.0 BASO % 0.3 % L=0.0 H=3.0 IG % 2514-8 0.4 % L=0.0 H=1.1 NRBC % 94527-5 0.0 % L=0.0 H=0.0 NEUT abs count 751-8 9.8 th/cmm L=1.6 H=8.4 LYMPH abs count 731-0 1.4 th/cmm L=1.5 H=4.0 MONO abs count 742-7 0.6 th/cmm L=0.2 H=1.0 EOS abs count 711-2 0.1 th/cmm L=0.0 H=0.5 BASO abs count 704-7 0.0 th/cmm L=0.0 H=0.2 IG abs count 93138-8 0.1 th/cmm L=0.0 H=0.1 NRBC abs count 34424-6 0.0 mil/cmm L=0.0 H=0.0 RBC 789-8 5.08 mil/cmm L=4.30 H=6.20 HEMOGLOBIN 718-7 15.7 gm/dL L=13.0 H=17.0 HEMATOCRIT 4544-3 47 % L=45 H=52 MCV 787-2 92 fL L=82 H=92 MCH 785-6 30.9 pg L=27.0 H=31.0 MCHC 786-4 33.5 % L=32.0 H=36.0 RDW-SD 788-0 43.7 fL L=39.0 H=49.0 PLATELET COUNT 777-3 310 th/cmm L=150 H=450 URINALYSIS WITH REFLEX CULT IF POSITIVE* - Collect Date/Time: 12/31/2021 16:00 Test Name Code Test Result Test Units Test Ref Range COLLECTION MODE: CLEAN CATCH N/A Color 5778-6 YELLOW N/A yellow Appearance 5767-9 CLEAR N/A clear Glucose urine 94047-8 NEGATIVE N/A negative mg/dl Bilirubin 5770-3 NEGATIVE N/A negative Ketones 2514-8 NEGATIVE N/A negative mg/dl Spec gravity 5811-5 1.010 N/A 1.003 - 1.030 pH urine 2756-5 6.0 N/A 5.0 - 7.0 Protein 55395-9 NEGATIVE N/A negative mg/dl Urobilinogen 76336-5 0.2 N/A <or= 1 EU/dl Nitrite. 5802-4 NEGATIVE N/A negative Blood 5794-3 NEGATIVE N/A negative Leukocytes. NEGATIVE N/A negative MICROSCOPIC NOT INDICAT N/A Active Medications Medication Code Dose Units Frequency Route Modification Start Date/Time MiraLAX 251750 1 APPL DAILY ORAL 12/31/2021 17GM/1Dose Oral 16:34 Powder for Solution Prescription Detail TAKE 1 APPL ORAL DAILY Medications Administered During Visit Unknown or Not Available. Encounters Encounter Diagnosis Diagnosis Code Start Date Unilateral inguinal hernia, without obstruction or K4090 12/31/2021 gangrene, not specified as recurrent Social History Smoking Status Code Start Date End Date Current every day smoker [id number] Patient Decision Aids Unknown or Not Available. Discharge Instructions You were admitted to [facility] on 12/31/2021 13:10 with a principal diagnosis of Unilateral inguinal hernia, without o bstruction or gangrene, not specified as recurrent You had the following tests done: URINA LYSIS WITH REFLEX CULT IF POSITIVE* BASIC METABOLIC PANEL (BMP) CBC W/ DIFFERENTIA L* You were discharged from [facility] on 12/31/2021 16:38 Should you have any questions prior to d ischarge, please contact a member of your healthcare team. If you have left the ho spital and have any questions, please contact your primary care physician. Chief Complaint and Reason For Visit Chief Complaint Date of Onset .LOWER ABD PAIN Function Status Unknown or Not Available. Plan of Care Unknown or Not Available. Referral/Transition of Care Unknown or Not Available.
--- NOTE | 2022-07-13 19:34 | ED.GENADUL_ITS ---
Discharge Plan Disposition Patient Disposition: HOME Condition: Stable Discharge Details Clinical Impression: Acute left lumbar radiculopathy Primary Care Provider: Unknown,Unknown ED Provider: Emelia Steele Home Meds and New Rx's Prescriptions: New gabapentin [Neurontin] 300 mg capsule 300 mg PO TID Qty: 21 0RF Discharge Instructions Additional Instructions: Patient take Neurontin as needed for your pain She have changes in bowel or bladder, fever or chills, weakness your extremity, return immediately for emergent reassessment Refrain from lifting more than 5 pounds Light stretching Establish care with PCP, we placed you on list for follow-up Stand Alone Forms: Work Release Medical Decision Making Patient appears well, he has subjective paresthesias in the absence of focal neurological findings on exam Patient given prescription for Neurontin for radicular symptoms He is referred to primary care physician for outpatient reassessment No indication for emergent MRI this evening, no clinical signs consistent with cauda equina syndrome Ambulatory with antalgic but steady gait Return precautions discussed and patient expressed understanding Medical Records Medical records reviewed: Yes I reviewed the patient's medical records. Lab Data Lab results reviewed: Yes I reviewed the patient's lab results. HPI General Date/Time Provider Initiated Documentation: 07/13/22 19:17 . HPI Narrative: This 41-year-old male presents with report of left lower extremity paresthesias with radiation down his back. He denies any abdominal pain. He states that symptoms have been worsening over the course of the past 3 weeks. He was recently incarcerated and has been on a prednisone taper. He has not used IV drugs for 4 years reportedly. He denies fever or chills. He denies any groin numbness or tingling, changes in bowel or bladder. He denies weakness to his legs but specifically reports pain from his buttocks down. Related Data Home Medications Medication Instructions Recorded Confirmed gabapentin 300 mg capsule 300 mg PO TID #21 caps 07/13/22 (Neurontin) Previous Rx's Medication Instructions Recorded gabapentin 300 mg capsule 300 mg PO TID #21 caps 07/13/22 (Neurontin) Allergies Allergy/AdvReac Type Severity Reaction Status Date / Time fentanyl AdvReac Unverified 07/13/22 19:19 General Stated Complaint: Orthopedic NITIN: 3 Review of Systems All systems reviewed & are unremarkable except as noted in HPI and below PFSH All Active Problems (Updated 07/13/22 @ 19:40 by DAVID Flor) Scrotal erythema (Acute) Acute left lumbar radiculopathy (Acute) Social History Smoking/Tobacco Use Status: Current every day Smoking risk assessment performed?: Yes Alcohol Intake: current Alcohol Intake frequency: a few times a month Drug use: Daily Substance use type: marijuana Do you feel safe at home: Yes Do you feel safe in your relationship?: Yes Exam Const General: cooperative, comfortable and no acute distress Resp Effort & Inspection: normal respiratory effort Auscultation: clear to auscultation bilaterally Cardio Rate: regular rate Rhythm: regular rhythm Other: Distal pulses intact GI Other: No CVA tenderness No abdominal bruit or pulsatile murmur Back/Spine/Pelvis Back: no CVA tenderness Other: Paraspinal tenderness lumbar spine Skin General skin exam: no rashes or lesions noted Neuro General: patient alert and patient oriented x3 Other: Strength and sensation intact distally, DTRs intact bilateral lower extremities, strength intact bilateral lower extremities, negative Babinski, positive straight leg raise on left Extrem Other: Distal pulses intact Course Vital Signs Vital signs: Vital Signs Temperature 36.5 C 07/13/22 18:33 Pulse 86 07/13/22 18:33 Respiratory Rate 16 07/13/22 18:33 Blood Pressure 141/76 H 07/13/22 18:33 Pulse Oximetry 99 07/13/22 18:33 Temperature 36.5 C 07/13/22 18:33 Temperature Source Skin 07/13/22 18:33 Pulse 86 07/13/22 18:33 Respiratory Rate 16 07/13/22 18:33 Respiratory Effort 07/13/22 18:33 Blood Pressure 141/76 H 07/13/22 18:33 Blood Pressure Position Sitting 07/13/22 18:33 Pulse Oximetry 99 07/13/22 18:33 Oxygen Delivery Method Room Air 07/13/22 18:33 Oxygen Flow Rate 0 07/13/22 18:33 Pain Level 10 07/13/22 19:10
[2022-07-13] MEDS: Gabapentin 300 MG CAP 600 MG PO (19:51)
--- NOTE | 2022-07-17 10:57 | NUR.NOTE ---
Nursing Note: Spoke with Debora, Care Management and she will contact patient about a PCP and how to get an MRI ordered. Phone to call is girlfrienermias King [phone]
--- NOTE | 2022-07-17 14:08 | CMACTNOTE_ITS ---
- If Service Date Differs Date of service: 07/17/22 Time of Service: 14:08 Care Management Activity Note Jeremias is seen in the ED on 07/13/22 for acute left lumbar radiculopathy. MONIQUE receives a request to help Jeremias obtain a follow up appointment. MONIQUE telephones Jeremias at the phone number on file ([phone]) but is unsuccessful at reaching Jeremias as the phone number is disconnected. On 07/17/2022, MONIQUE speaks with Jeremias after he calls the ED. Jeremias confirms that he lives in [place] and reports that he does not have a PCP. MONIQUE offers to send a referral to [facility], the on-call T-doc, and Jeremias is agreeable to this. MONIQUE coordinates a referral to the [facility] and provides Jeremias with their phone number.
== END 2022-07-13 20:08 | disposition home or self-care (01) ==
PROVIDERS: Emergency Provider Physician Assistant
DX: M54.16 Radiculopathy, lumbar region (principal); F17.200 Nicotine dependence, unspecified, uncomplicated
CPT/HCPCS: 99283; 99284